=== PATIENT | male | born 1980 | race Caucasian/White ===

== ENCOUNTER 2018-01-13 23:35 | Emergency (ER) | payer OTHER ==
[2018-01-13 23:46] VITALS: BP 148/85; PULSE 104; RESP 18; TEMP 98.2
[2018-01-14 00:21] LABS: Appearance,Urine Cloudy (Clear); Bilirubin,Urine Negative (Negative); Blood,Urine Negative (Negative); Color,Urine Yellow; Glucose,Urine (UA) Negative (Negative); Hyaline Casts,Urine 18 /lpf (0-2); Ketones,Urine Negative (Negative); Leukocyte Esterase,Urine Negative (Negative); Mucus,Urine Many /hpf; Nitrite,Urine Negative (Negative); Protein,Urine 2+ (Negative); Specific Gravity,Urine 1.023 (1.001-1.035); WBC,Urine 9 /hpf (0-5)
--- NOTE | 2018-01-14 00:30 | ED ---
Male Urogenital HPI - General Chief complaint: Urogenital Stated complaint: male gu Time Seen by Provider: 01/13/18 23:47 Source: patient, RN notes reviewed Mode of arrival: ambulatory Limitations: no limitations - History of Present Illness Initial comments: This a 37-year-old male presents emergency Department chief complaint of swelling to his penis. Patient states that he notices regarding the shower today. Patient does admit to intercourse last night with his significant other. He denies any trauma. Denies any pain denies any difficulty urinating. Patient states that it's just swollen, purple in color. Patient states is at the base of his penile shaft denies any swelling to the head of the penis. - Related Data Home Medications Medication Instructions Recorded Confirmed [place] Carbonate [[place] 300 mg PO TID 04/14/14 01/13/18 Carbonate ER] Previous Rx's Medication Instructions Recorded [place] Carbon[place] [[place]] 300 mg PO TID #42 capsule 04/14/14 hydrOXYzine PAMOATE [Vistaril] 100 mg PO HS #28 capsule 04/14/14 Allergies Allergy/AdvReac Type Severity Reaction Status Date / Time Penicillins Allergy Unknown Verified 01/13/18 23:46 Review of Systems ROS Statement: Those systems with pertinent positive or pertinent negative responses have been documented in the HPI. ROS Other: All systems not noted in ROS Statement are negative. Past Medical History Past Medical History: No Reported History History of Any Multi-Drug Resistant Organisms: None Reported Past Surgical History: No Surgical Hx Reported Past Psychological History: Bipolar Smoking Status: Current every day smoker Past Alcohol Use History: Occasional Past Drug Use History: None Reported General Exam Limitations: no limitations General appearance: alert, in no apparent distress Head exam: Present: atraumatic, normocephalic, normal inspection Respiratory exam: Present: normal lung sounds bilaterally. Absent: respiratory distress, wheezes, rales, rhonchi, stridor Cardiovascular Exam: Present: regular rate, normal rhythm, normal heart sounds. Absent: systolic murmur, diastolic murmur, rubs, gallop, clicks GI/Abdominal exam: Present: soft, normal bowel sounds. Absent: distended, tenderness, guarding, rebound, rigid exam: Present: circumcision. Absent: normal inspection (There is a hematoma noted on anterior surface of the penis is not circumferential it is at the base of the penis does not extend past the mid shaft and there is no trauma to female shaft or the head of the penis. There is no scrotal pain scrotal tenderness or swelling), testicular tenderness, scrotal swelling Course Vital Signs 01/13/18 23:43 Temperature 98.2 F Pulse Rate 104 H Respiratory 18 Rate Blood Pressure 148/85 O2 Sat by Pulse 97 Oximetry Medical Decision Making - Medical Decision Making 37-year-old male presented for pain L swelling. Patient has a hematoma noted patient reports no trauma and there is no associated pain. Patient had a urinalysis no evidence of hematuria. Injury is not circumferential. There is no concern for pale fracture at this time is no trauma. Patient will be discharged advised to follow with urology and return for any worsening symptoms. - Lab Data Lab Results 01/13/18 Range/Units 23:59 Urine Color Yellow Urine Appearance Cloudy (Clear) Urine pH 6.0 (5.0-8.0) Ur Specific [place] 1.023 (1.001-1.035) Urine Protein 2+ H (Negative) Urine Glucose (UA) Negative (Negative) Urine Ketones Negative (Negative) Urine Blood Negative (Negative) Urine Nitrite Negative (Negative) Urine Bilirubin Negative (Negative) Urine Urobilinogen 6.0 (<2.0) mg/dL Ur Leukocyte Esterase Negative (Negative) Urine WBC 9 H (0-5) /hpf Hyaline Casts 18 H (0-2) /lpf Urine Mucus Many H (None) /hpf Disposition Clinical Impression: Nontraumatic hematoma of penis Disposition: HOME SELF-CARE Condition: Stable Instructions: Hematoma (ED) Additional Instructions: Please return to the Emergency Department if symptoms worsen or any other concerns. Is patient prescribed a controlled substance at d/c from ED?: No Referrals: None,Stated [Primary Care Provider] - 1-2 days
[2018-01-15 16:10] LABS: N. gonorrhoeae,PCR Negative (Neg,Equiv); Neisseria Source Urine
[2018-01-15 16:23] LABS: C. trachomatis,PCR Negative (Neg,Equiv); Chlamydia trachomatis Source Urine
== END 2018-01-14 00:33 | disposition home or self-care (01) ==
LOC: EC 23:35
DX: N48.89 Other specified disorders of penis (principal); F31.9 Bipolar disorder, unspecified; F17.200 Nicotine dependence, unspecified, uncomplicated; Z79.899 Other long term (current) drug therapy; Z88.0 Allergy status to penicillin
CPT/HCPCS: 81001; 87086; 87491; 87591; 99283

== ENCOUNTER 2018-03-02 23:45 | Observation (INO) | payer OTHER ==
[2018-03-03] MEDS ORDERED: HYDROcodone/APAP 5-325MG 1 EACH TAB PO STA ×2 (00:02→00:47)
--- NOTE | 2018-03-03 00:08 | ED ---
Fall HPI - General Source: patient, RN notes reviewed Mode of arrival: ambulatory Limitations: no limitations <Supa Estevez - Last Filed: 03/03/18 02:34> <Wes Siblye - Last Filed: 03/04/18 11:47> - General Chief Complaint: Fall Stated Complaint: Shoulder Injury Time Seen by Provider: 03/02/18 23:56 - History of Present Illness Initial Comments: This is a 37-year-old male presents emergency Department chief complaint fall, chest and shoulder injury. Patient states he fell off an 8 foot ladder directly onto a rock. He states he's been severe pain ever since the fall. Patient states he can't move the shoulder, take a deep breath or cough without severe pain. Patient denies any head injury no loss conscious. Denies neck or back pain. Patient is found to be febrile emergency department he denies feeling feverish at home, chills or night sweats. Patient states he did have some ingrown hairs on his chest and in which he popped and now noticed swelling on the top of his chest. (Supa Estevez) - Related Data Home Medications Medication Instructions Recorded Confirmed No Known Home Medications 03/03/18 03/03/18 Allergies Allergy/AdvReac Type Severity Reaction Status Date / Time Penicillins Allergy Unknown Verified 03/03/18 08:32 Review of Systems ROS Other: All systems not noted in ROS Statement are negative. <Supa Estevez - Last Filed: 03/03/18 02:34> ROS Other: All systems not noted in ROS Statement are negative. <Wes Sibley - Last Filed: 03/04/18 11:47> ROS Statement: Those systems with pertinent positive or pertinent negative responses have been documented in the HPI. Past Medical History Past Medical History: No Reported History History of Any Multi-Drug Resistant Organisms: None Reported Past Surgical History: No Surgical Hx Reported Past Psychological History: Bipolar Smoking Status: Current every day smoker Past Alcohol Use History: Occasional Past Drug Use History: None Reported <Supa Estevez - Last Filed: 03/03/18 02:34> General Exam Limitations: no limitations General appearance: alert, in no apparent distress Head exam: Present: atraumatic, normocephalic, normal inspection Eye exam: Present: normal appearance, PERRL, EOMI. Absent: scleral icterus, conjunctival injection, periorbital swelling ENT exam: Present: normal exam, normal oropharynx, mucous membranes moist Neck exam: Present: normal inspection. Absent: tenderness, meningismus, lymphadenopathy Respiratory exam: Present: normal lung sounds bilaterally, chest wall tenderness (Severe anterior chest wall pain at the superior aspect, there is some erythematous follicles on the chest). Absent: respiratory distress, wheezes, rales, rhonchi, stridor Cardiovascular Exam: Present: normal rhythm, tachycardia, normal heart sounds. Absent: systolic murmur, diastolic murmur, rubs, gallop, clicks GI/Abdominal exam: Present: soft, normal bowel sounds. Absent: distended, tenderness, guarding, rebound, rigid <Supa Estevez - Last Filed: 03/03/18 02:34> Vital Signs 03/02/18 03/03/18 03/03/18 23:47 01:51 02:19 Temperature 100.6 F H 99.3 F Pulse Rate 140 H 102 H 101 H Respiratory 24 19 17 Rate Blood Pressure 157/92 136/78 131/92 O2 Sat by Pulse 92 L 94 L 94 L Oximetry 03/03/18 02:56 Temperature 98.4 F Pulse Rate 102 H Respiratory 15 Rate Blood Pressure 138/85 O2 Sat by Pulse 93 L Oximetry Medical Decision Making - Lab Data Result diagrams: 03/03/18 00:15 03/03/18 00:15 <Supa Estevez - Last Filed: 03/03/18 02:34> - Lab Data Result diagrams: 03/03/18 00:15 03/03/18 00:15 <Wes Sibley - Last Filed: 03/04/18 11:47> - Medical Decision Making I saw this patient in conjunction with the physician warehouse administrative assistant. I performed independent history and physical exam. Agree with case management. (Wes Sibley) - Lab Data Lab Results 03/03/18 03/03/18 03/03/18 Range/Units 00:15 00:15 00:15 WBC 16.5 H (3.8-10.6) k/uL RBC 4.46 (4.30-5.90) m/uL Hgb 13.6 (13.0-17.5) gm/dL Hct 40.4 (39.0-53.0) % MCV 90.6 (80.0-100.0) fL MCH 30.5 (25.0-35.0) pg MCHC 33.7 (31.0-37.0) g/dL RDW 13.0 (11.5-15.5) % Plt Count 414 (150-450) k/uL Neutrophils % 79 % Lymphocytes % 11 % Monocytes % 6 % Eosinophils % 1 % Basophils % 0 % Neutrophils # 12.9 H (1.3-7.7) k/uL Lymphocytes # 1.7 (1.0-4.8) k/uL Monocytes # 1.0 (0-1.0) k/uL Eosinophils # 0.2 (0-0.7) k/uL Basophils # 0.1 (0-0.2) k/uL Sodium 134 L (137-145) mmol/L Potassium 4.5 (3.5-5.1) mmol/L Chloride 95 L (98-107) mmol/L Carbon Dioxide 25 (22-30) mmol/L Anion Gap 14 mmol/L BUN 14 (9-20) mg/dL Creatinine 0.70 (0.66-1.25) mg/dL Est GFR (CKD-EPI)AfAm >90 (>60 ml/min/1.73 sqM) Est GFR (CKD-EPI)NonAf >90 (>60 ml/min/1.73 sqM) Glucose 142 H (74-99) mg/dL Plasma Lactic Acid Anthony (0.7-2.0) mmol/L Calcium 9.0 (8.4-10.2) mg/dL Total Bilirubin 0.6 (0.2-1.3) mg/dL AST 49 (17-59) U/L ALT 57 (21-72) U/L Alkaline Phosphatase 108 (38-126) U/L Total Creatine Kinase 37 L (55-170) U/L CK-MB (CK-2) <0.2 (0.0-2.4) ng/mL CK-MB (CK-2) Rel Index Troponin I <0.012 (0.000-0.034) ng/mL Total Protein 7.7 (6.3-8.2) g/dL Albumin 3.7 (3.5-5.0) g/dL 03/03/18 Range/Units 00:15 WBC (3.8-10.6) k/uL RBC (4.30-5.90) m/uL Hgb (13.0-17.5) gm/dL Hct (39.0-53.0) % MCV (80.0-100.0) fL MCH (25.0-35.0) pg MCHC (31.0-37.0) g/dL RDW (11.5-15.5) % Plt Count (150-450) k/uL Neutrophils % % Lymphocytes % % Monocytes % % Eosinophils % % Basophils % % Neutrophils # (1.3-7.7) k/uL Lymphocytes # (1.0-4.8) k/uL Monocytes # (0-1.0) k/uL Eosinophils # (0-0.7) k/uL Basophils # (0-0.2) k/uL Sodium (137-145) mmol/L Potassium (3.5-5.1) mmol/L Chloride (98-107) mmol/L Carbon Dioxide (22-30) mmol/L Anion Gap mmol/L BUN (9-20) mg/dL Creatinine (0.66-1.25) mg/dL Est GFR (CKD-EPI)AfAm (>60 ml/min/1.73 sqM) Est GFR (CKD-EPI)NonAf (>60 ml/min/1.73 sqM) Glucose (74-99) mg/dL Plasma Lactic Acid [place] 1.3 (0.7-2.0) mmol/L Calcium (8.4-10.2) mg/dL Total Bilirubin (0.2-1.3) mg/dL AST (17-59) U/L ALT (21-72) U/L Alkaline Phosphatase (38-126) U/L Total Creatine Kinase (55-170) U/L CK-MB (CK-2) (0.0-2.4) ng/mL CK-MB (CK-2) Rel Index Troponin I (0.000-0.034) ng/mL Total Protein (6.3-8.2) g/dL Albumin (3.5-5.0) g/dL Disposition <Supa Estevez - Last Filed: 03/03/18 02:34> <Wes Sibley - Last Filed: 03/04/18 11:47> Clinical Impression: Fall, Chest wall abscess, Chest wall contusion Disposition: ADMITTED IP TO THIS HOSP Condition: Stable Addendum entered and electronically signed by Supa Estevez PA-C 03/03/18 02: 36: EKG performed at 1:38 sinus tachycardia with a rate of 108 DC 146 QRS 98 QT/QTC 322/431
[2018-03-03 00:27] LABS: Basophils # (A) 0.1 k/uL (0-0.2); Basophils % (A) 0 %; Eosinophils # (A) 0.2 k/uL (0-0.7); Eosinophils % (A) 1 %; HCT 40.4 % (39.0-53.0); HGB 13.6 gm/dL (13.0-17.5); Lymphocytes # (A) 1.7 k/uL (1.0-4.8); Lymphocytes % (A) 11 %; MCH 30.5 pg (25.0-35.0); MCHC 33.7 g/dL (31.0-37.0); MCV 90.6 fL (80.0-100.0); Mean Platelet Volume 6.7; Monocytes % (A) 6 %; Neutrophils # (A) 12.9 k/uL (1.3-7.7); Neutrophils % (A) 79 %; Platelet Count 414 k/uL (150-450); RBC 4.46 m/uL (4.30-5.90); WBC 16.5 k/uL (3.8-10.6)
[2018-03-03 00:36] LABS: ALT 57 U/L (21-72); AST 49 U/L (17-59); Albumin 3.7 g/dL (3.5-5.0); Alkaline Phosphatase 108 U/L (38-126); Anion Gap 14 mmol/L; Blood Urea Nitrogen 14 mg/dL (9-20); Carbon Dioxide 25 mmol/L (22-30); Chloride 95 mmol/L (98-107); Glucose 142 mg/dL (74-99); Potassium 4.5 mmol/L (3.5-5.1); Sodium 134 mmol/L (137-145); Total Bilirubin 0.6 mg/dL (0.2-1.3); Total Protein 7.7 g/dL (6.3-8.2)
--- NOTE | 2018-03-03 00:41 | XR ---
EXAMINATION TYPE: XR chest 2V DATE OF EXAM: 03/03/2018 COMPARISON: 08/25/2013 HISTORY: Shoulder pain chest pain TECHNIQUE: Frontal and lateral views of the chest are obtained. FINDINGS: Heart and mediastinum are normal. Lungs are clear. Diaphragm is normal. Bony thorax is int act. IMPRESSION: Normal chest. No change.
[2018-03-03] MEDS ORDERED: RX INFO: IV CONTRAST WAS GIVEN 1 EACH MISC MISCELLANE PRN (00:42)
[2018-03-03 00:46] LABS: Creatine Kinase 37 U/L (55-170)
[2018-03-03 00:59] LABS: Creatine Kinase MB <0.2 ng/mL (0.0-2.4); Troponin I <0.012 ng/mL (0.000-0.034)
--- NOTE | 2018-03-03 01:38 | CT ---
EXAMINATION TYPE: CT chest w con DATE OF EXAM: 03/03/2018 COMPARISON: None HISTORY: pain CT DLP: 527.60 mGycm Automated exposure control for dose reduction was used. CONTRAST: CT scan of the chest is performed with IV Contrast, patient injected with 100 mL of Isovue 300. FINDINGS: The lungs are clear of consolidation. There is minimal interstitial density at the left lung base. Th ere is no pleural effusion. There is no evidence of a pneumothorax. Heart size is normal. There is no pericardial effusion. There is no mediastinal adenopathy. There is a 4 x 3 cm area of low attenuatio n anterior to the manubrium consistent with a subcutaneous fluid collection. This could be a hematoma or abscess. I see no focal bone destruction. There is no evidence of a fracture of the bony thorax. IMPRESSION: Anterior subcutaneous fluid collection as above. No evidence of osteomyelitis. Mild subc utaneous edema over the anterior upper chest. Minimal interstitial infiltrate in the left lower lobe. No evidence of left shoulder fracture.
[2018-03-03] MEDS ORDERED: cefTRIAXone IN SWFI 1,000 MG/10 ML SYRINGE IVP STA (02:00)
[2018-03-03] MEDS ORDERED: VANCOMYCIN IV PER PHARMACY 1 EACH MISC MISCELLANE PRN (02:00)
[2018-03-03] MEDS ORDERED: MORPHINE SULFATE 4 MG/ML SYRINGE IV PRN (02:34)
[2018-03-03] MEDS ORDERED: ACETAMINOPHEN TAB 325 MG TAB PO PRN (02:34)
[2018-03-03] MEDS ORDERED: ONDANSETRON 4 MG/2 ML VIAL IVP PRN (02:34)
[2018-03-03] MEDS ORDERED: VANCOMYCIN 1,750 MG in SODIUM CHLORIDE 0.9% 500 ML IVPB ONE (03:15)
[2018-03-03 03:19] VITALS: RESP 16
[2018-03-03 03:30] VITALS: BMI 26.9
[2018-03-03] MEDS ORDERED: VANCOMYCIN 1,750 MG in SODIUM CHLORIDE 0.9% 250 ML IVPB ONE (03:31)
[2018-03-03] MEDS: HYDROcodone/APAP 5-325MG 1 EACH TAB PO PRN ×3 (05:17→16:27)
--- NOTE | 2018-03-03 08:12 | P.GSHP ---
History of Present Illness H&P Date: 03/03/18 Chief Complaint: Chest wall pain Patient comes in the ER last night complaining of pain in the upper sternal region. This is been gradually increasing in severity over the last several days. It is at the point now where he is unable to move his left shoulder joint without significant pain. His significant other had to dress him. He was feeling well until about 2 weeks ago. Around that time the patient developed a itching rash involving the lower anterior chest wall. There were multiple small pustules that he identified and drained himself. He was not treated with antibiotics for this. He still has scarring in that area with some small open wounds. He does have some small superficial wounds involving other areas of the torso as well. 6 days ago the patient fell off a ladder and landed on a rough ground with rock. His left upper chest was first hit the ground during that episode. The patient presents to the ER with fevers. His white blood cell count is elevated. CAT scan of the chest showed a fluid collection anterior to the manubrium with some inflammatory changes. No fracture or bony involvement was described. - Review of Systems Comment: The patient denies any acute changes in vision or hearing, no dysphagia or odynophagia, no chest pain or shortness of breath, no dysuria or hematuria, no headache, no runny nose, no rectal bleeding or melena, no unexplained weight loss Past Medical History Past Medical History: No Reported History History of Any Multi-Drug Resistant Organisms: None Reported Past Surgical History: No Surgical Hx Reported Past Anesthesia/Blood Transfusion Reactions: No Reported Reaction Past Psychological History: Bipolar Smoking Status: Current every day smoker Past Alcohol Use History: None Reported, Occasional Past Drug Use History: None Reported Medications and Allergies Home Medications Medication Instructions Recorded Confirmed Type [place] Carbonate [[place] 300 mg PO TID 04/14/14 01/13/18 History Carbonate ER] [place] Carbonate [[place]] 300 mg PO TID #42 capsule 04/14/14 01/13/18 Rx hydrOXYzine PAMOATE [Vistaril] 100 mg PO HS #28 capsule 04/14/14 01/13/18 Rx Allergies Allergy/AdvReac Type Severity Reaction Status Date / Time Penicillins Allergy Unknown Verified 03/02/18 23:50 Surgical - Exam Vital Signs Temp Pulse Resp BP Pulse Ox 100.6 F H 140 H 24 157/92 92 L 03/02/18 23:47 03/02/18 23:47 03/02/18 23:47 03/02/18 23:47 03/02/18 23:47 Physical exam: General: Well-developed, well-nourished HEENT: Normocephalic, sclerae nonicteric Chest: Multiple small less than 5 mm open wounds involving the lower anterior chest wall without tenderness, swelling and erythema with significant tenderness involving the upper midsternal region extending to the left, pain involving the medial left clavicle and sternocleidomastoid muscle on the left, significant pain with any active or passive motion at the left shoulder joint, no fluctuance palpable Abdomen: Nontender, nondistended Extremities: No edema Neuro: Alert and oriented Results - Labs 03/03/18 00:15 03/03/18 00:15 Abnormal Lab Results - Last 24 Hours (Table) 03/03/18 03/03/18 03/03/18 Range/Units 00:15 00:15 00:15 WBC 16.5 H (3.8-10.6) k/uL Neutrophils # 12.9 H (1.3-7.7) k/uL Sodium 134 L (137-145) mmol/L Chloride 95 L (98-107) mmol/L Glucose 142 H (74-99) mg/dL Total Creatine Kinase 37 L (55-170) U/L Diabetes panel 03/03/18 Range/Units 00:15 Sodium 134 L (137-145) mmol/L Potassium 4.5 (3.5-5.1) mmol/L Ch[place] 95 L (98-107) mmol/L Carbon Dioxide 25 (22-30) mmol/L BUN 14 (9-20) mg/dL Creatinine 0.70 (0.66-1.25) mg/dL Glucose 142 H (74-99) mg/dL Calcium 9.0 (8.4-10.2) mg/dL AST 49 (17-59) U/L ALT 57 (21-72) U/L Alkaline Phosphatase 108 (38-126) U/L Total Protein 7.7 (6.3-8.2) g/dL Albumin 3.7 (3.5-5.0) g/dL Calcium panel 03/03/18 Range/Units 00:15 Calcium 9.0 (8.4-10.2) mg/dL Albumin 3.7 (3.5-5.0) g/dL Pituitary panel 03/03/18 Range/Units 00:15 Sodium 134 L (137-145) mmol/L Potassium 4.5 (3.5-5.1) mmol/L Chlor[place] 95 L (98-107) mmol/L Carbon Dioxide 25 (22-30) mmol/L BUN 14 (9-20) mg/dL Creatinine 0.70 (0.66-1.25) mg/dL Glucose 142 H (74-99) mg/dL Calcium 9.0 (8.4-10.2) mg/dL Adrenal panel 03/03/18 Range/Units 00:15 Sodium 134 L (137-145) mmol/L Potassium 4.5 (3.5-5.1) mmol/L Chlor[place] 95 L (98-107) mmol/L Carbon Dioxide 25 (22-30) mmol/L BUN 14 (9-20) mg/dL Creatinine 0.70 (0.66-1.25) mg/dL Glucose 142 H (74-99) mg/dL Calcium 9.0 (8.4-10.2) mg/dL Total Bilirubin 0.6 (0.2-1.3) mg/dL AST 49 (17-59) U/L ALT 57 (21-72) U/L Alkaline Phosphatase 108 (38-126) U/L Total Protein 7.7 (6.3-8.2) g/dL Albumin 3.7 (3.5-5.0) g/dL Assessment and Plan (1) Chest wall abscess Narrative/Plan: Patient with CAT scan findings and clinical exam findings suggesting chest wall abscess at the level of the manubrium. Clinically I'm concerned about the possibility of infection involving the sternoclavicular joint. We'll consult thoracic surgery to evaluate this patient. Will require surgical drainage and possible debridement. This may require transfer for definitive treatment. Continue antibiotics. We'll also consult infectious disease. Current Visit: Yes Status: Acute Code(s): L02.213 - CUTANEOUS ABSCESS OF CHEST WALL SNOMED Code(s): 02177786
[2018-03-03] MEDS ORDERED: VANCOMYCIN 1,500 MG in SODIUM CHLORIDE 0.9% 250 ML IVPB SCH (10:00)
--- NOTE | 2018-03-03 10:58 | P.GSCN ---
<Concepcion Torres Estefania - Last Filed: 03/03/18 10:38> History of Present Illness Consult date: 03/03/18 Reason for Consult: Chest wall abscess, surgical recommendations. Requesting physician: Tam Bates History of present illness: This is a 37-year-old gentleman who does not follow with a primary care physician on a regular basis. His only previous medical history is bipolar disorder as well as current everyday tobacco dependence and occasional marijuana use. A few days ago he fell off a ladder and landed on rough, cely ground, he did hit his chest. He denied hitting his head or losing consciousness. He chose not to come to the emergency room at that time stating that his pain was not too bad, however over the next few days his pain continued to grow. He initially thought it was just muscle strain but presented to the emergency room last night because the pain has gotten so bad he was unable to move his left arm. In the emergency room a chest x-ray was completed demonstrating no fractures or significant cardiopulmonary process. A chest CT was completed which showed evidence of a fluid collection in front of the manubrium, questioning whether it is a hematoma versus abscess, and no fractures were seen. The patient does have an elevated white blood cell count of 16.5, and has been mildly febrile with a max temp of 100.6F. Of note, a couple of weeks ago he did have an itchy rash with what he described to be ingrown hairs on his chest, he did "pop" multiple small pustules, and does still continue to have open sores which do not look to be draining but are very red in nature. He had not been treated with any antibiotics for this. The patient does state his only other symptom is increased pain with deep inspiration, pain is mildly controlled with currently ordered medication, and he denies any other symptoms. He was admitted and placed on IV vancomycin. Dr. Tapia from cardiothoracic surgery was consulted for surgical recommendations regarding chest wall abscess. Review of Systems Review of systems was completed and was negative except as noted in the HPI. - Constitutional Reports as per HPI, Reports sweats - Cardiovascular Reports as per HPI, Reports chest pain - Musculoskeletal Musculoskeleta Comment(s): Unable to move left arm secondary to pain Reports as per HPI - Integumentary Reports as per HPI, Reports wounds Past Medical History Past Medical History: No Reported History History of Any Multi-Drug Resistant Organisms: None Reported Past Surgical History: No Surgical Hx Reported Past Anesthesia/Blood Transfusion Reactions: No Reported Reaction Past Psychological History: Bipolar Smoking Status: Current every day smoker Past Alcohol Use History: None Reported, Occasional Past Drug Use History: Marijuana Medications and Allergies Home Medications Medication Instructions Recorded Confirmed Type No Known Home Medications 03/03/18 03/03/18 History Allergies Allergy/AdvReac Type Severity Reaction Status Date / Time Penicillins Allergy Unknown Verified 03/03/18 08:32 Surgical - Exam Vital Signs Temp Pulse Resp BP Pulse Ox 100.6 F H 140 H 24 157/92 92 L 03/02/18 23:47 03/02/18 23:47 03/02/18 23:47 03/02/18 23:47 03/02/18 23:47 - General No acute distress well developed, well nourished, moderate pain - Eyes PERRL, normal ocular movement - ENT no hearing loss, poor correction - Neck no masses, no bruits, trachea midline - Respiratory Lungs sounds diminished bilaterally. Respirations even, nonlabored. Currently on room air with oxygen saturation 94%. Able to give weak cough. - Cardiovascular S1, S2 present. Regular rate and rhythm. Sinus tach on EKG. Palpable peripheral pulses bilaterally. No edema present. No calf pain or tenderness noted. - Abdomen Abdomen: soft, non tender, bowel sounds - Genitourinary Deferred - Rectum Deferred - Integumentary Multiple areas of small wounds on the anterior superior chest wall which are very red but not draining currently. Skin is diaphoretic. Multiple tattoos present. - Neurologic normal coordination, normal sensation - Psychiatric oriented to time, oriented to person, oriented to place, speech is normal, memory intact Results - Labs 03/03/18 00:15 03/03/18 00:15 Abnormal Lab Results - Last 24 Hours (Table) 03/03/18 03/03/18 03/03/18 Range/Units 00:15 00:15 00:15 WBC 16.5 H (3.8-10.6) k/uL Neutrophils # 12.9 H (1.3-7.7) k/uL Sodium 134 L (137-145) mmol/L Chloride 95 L (98-107) mmol/L Glucose 142 H (74-99) mg/dL Total Creatine Kinase 37 L (55-170) U/L Diabetes panel 03/03/18 Range/Units 00:15 Sodium 134 L (137-145) mmol/L Potassium 4.5 (3.5-5.1) mmol/L Chloride 95 L (98-107) mmol/L Carbon Dioxide 25 (22-30) mmol/L BUN 14 (9-20) mg/dL Creatinine 0.70 (0.66-1.25) mg/dL Glucose 142 H (74-99) mg/dL Calcium 9.0 (8.4-10.2) mg/dL AST 49 (17-59) U/L ALT 57 (21-72) U/L Alkaline Phosphatase 108 (38-126) U/L Total Protein 7.7 (6.3-8.2) g/dL Albumin 3.7 (3.5-5.0) g/dL Calcium panel 03/03/18 Range/Units 00:15 Calcium 9.0 (8.4-10.2) mg/dL Albumin 3.7 (3.5-5.0) g/dL Pituitary panel 03/03/18 Range/Units 00:15 Sodium 134 L (137-145) mmol/L Potassium 4.5 (3.5-5.1) mmol/L Chloride 95 L (98-107) mmol/L Carbon Dioxide 25 (22-30) mmol/L BUN 14 (9-20) mg/dL Creatinine 0.70 (0.66-1.25) mg/dL Glucose 142 H (74-99) mg/dL Calcium 9.0 (8.4-10.2) mg/dL Adrenal panel 03/03/18 Range/Units 00:15 Sodium 134 L (137-145) mmol/L Potassium 4.5 (3.5-5.1) mmol/L Chloride 95 L (98-107) mmol/L Carbon Dioxide 25 (22-30) mmol/L BUN 14 (9-20) mg/dL Creatinine 0.70 (0.66-1.25) mg/dL Glucose 142 H (74-99) mg/dL Calcium 9.0 (8.4-10.2) mg/dL Total Bilirubin 0.6 (0.2-1.3) mg/dL AST 49 (17-59) U/L ALT 57 (21-72) U/L Alkaline Phosphatase 108 (38-126) U/L Total Protein 7.7 (6.3-8.2) g/dL Albumin 3.7 (3.5-5.0) g/dL - Imaging Chest x-ray: report reviewed, image reviewed CT scan - chest: report reviewed, image reviewed EKG: image reviewed Assessment and Plan (1) Bipolar 1 disorder Status: Chronic Code(s): F31.9 - BIPOLAR DISORDER, UNSPECIFIED SNOMED Code(s ): 275079082 (2) Tobacco dependence Status: Chronic Code(s): F17.200 - NICOTINE DEPENDENCE, UNSPECIFIED, UNCOMPLICATED SNOMED Code(s): 04638363 (3) Marijuana use Status: Chronic Code(s): F12.90 - CANNABIS USE, UNSPECIFIED, UNCOMPLICATED SNOMED Code(s): 312300737 (4) Chest wall abscess Status: Acute Code(s): L02.213 - CUTANEOUS ABSCESS OF CHEST WALL SNOMED Code (s): 19445217 (5) Fall Status: Acute Code(s): W19.XXXA - UNSPECIFIED FALL, INITIAL ENCOUNTER SNOMED Code(s): 5331377 Plan: The patient was seen and examined at the bedside. Chart/diagnostics were reviewed. Case was discussed with Dr. Tapia who will be in to see the patient this afternoon. We will order incentive spirometry and encourage use 10 times every hour. Pain medication with current regimen. Continue antibiotics. We' ll make decision today regarding treatment plan and will discuss with the patient and with Dr. Bates. More recommendations to follow. Thank you Dr. Bates for this consult. We look forward to working with you in the care of your patient. Time with Patient: Greater than 30 <Patrice Tapia - Last Filed: 03/07/18 09:40> Surgical - Exam Vital Signs Temp Pulse Resp BP Pulse Ox 100.6 F H 140 H 24 157/92 92 L 03/02/18 23:47 03/02/18 23:47 03/02/18 23:47 03/02/18 23:47 03/02/18 23:47 Results - Labs 03/03/18 00:15 03/03/18 00:15 Microbiology - Last 24 Hours (Table) 03/03/18 15:26 Blood Culture - Preliminary Blood No Growth after 72 hours Assessment and Plan Plan: The patient was seen and examined. I agree with the above assessment and plan. The patient is a 37 y/o male who fell onto his chest from a ladder. He has some erythema and tenderness near the superior portion of his sternum. CT scan of the chest was personally reviewed. There is no evidence of fracture. There is a small fluid collection near the manubrium but it appears to be anterior to the bone. The bone itself does not appear to be involved. He may benefit from an MRI. At this point, I would continue with antibiotics. The patient may eventually require surgical drainage/debridement. I will speak with the Dr. Bates regarding my findings.
[2018-03-03] MEDS ORDERED: NICOTINE 14MG/24HR PATCH TRANSDERM SCH (11:15)
[2018-03-03 15:04] VITALS: BP 119/74; PULSE 69; TEMP 98
[2018-03-03] MEDS ORDERED: ceFAZolin IN SWFI 2 GM/20 ML SYRINGE IVP STA (17:58)
--- NOTE | 2018-03-03 20:21 | P.CONS ---
History of Present Illness - Reason for Consult Consult date: 03/03/18 - Chief Complaint fall from ladder - History of Present Illness Pleasant 37-year-old male who apparently does not have significant underlying medical troubles except for a skin rash to his anterior chest wall relates that he was doing relatively well until falling off a ladder. He relates that he was approximately 8 feet in the air when he fell from the ladder. 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 After falling he was having increasing amounts of pain to his anterior chest wall and because of the increasing amount of pain he did present to the emergency center. There is evidence of no stiff infractured a significant abnormal collection of fluid around the manubrium going to the left shoulder. The patient was admitted and seen by general surgery. There is also a cardiothoracic consult requested. The patient is upright able to maneuver in his room but complaining of septic and pain in the area. He is denying severe shortness of breath, he is not having cough or sputum production. There is been no hemoptysis or other change of his pulmonary status. He does relate to some discomfort with a deep breath or cough to the left upper chest area. He does relate that his left shoulder was quite painful a few days ago and this is improved but still not back to baseline. He denies any new neurological symptoms and has no history of seizures or other difficulties. Review of Systems 37-year-old male without significant underlying medical troubles HEENT:Denies headache or acute visual change. Denies sinus or mouth discomforts. Denies neck stiffness or pain. Denies significant oral cavity pain. Denies difficulty on swallowing. Lungs: Denies significant shortness of breath, cough, sputum production, or hemoptysis. Cardiovascular: Denies significant shortness of breath, chest pain, chest wall pain, orthopnea, dyspnea on exertion, syncope Gastrointestinal:Denies nausea, vomiting, diarrhea, constipation, hematemesis, melena, hematochezia. No no significant change of bowel habit noticed. Musculoskeletal: Complains of pain to the left shoulder area and left anterior chest Skin: Has complaints of a blistering type rash anterior chest that had drainage of purulent type material in a cluster over the mid sternal area occurring many days before his trauma. Neuro: Denies headache or visual change. Denies any new onset weakness or difficulty with ambulation. Denies falls or seizures. Psychiatric:Denies anxiety or depression. Endocrine: Denies significant fatigue, denies significant weight loss or weight gain. Past Medical History Past Medical History: No Reported History History of Any Multi-Drug Resistant Organisms: None Reported Past Surgical History: No Surgical Hx Reported Past Anesthesia/Blood Transfusion Reactions: No Reported Reaction Past Psychological History: Bipolar Additional Psychological History / Comment(s): Lives with his girlfriend. Works in construction. Does not have experience. No international travel. No animals in the home. Is a tobacco smoker but denies significant alcohol or recreational drug use. Does not relate any ongoing medications in the home setting. Smoking Status: Current every day smoker Past Alcohol Use History: None Reported, Occasional Past Drug Use History: Marijuana Medications and Allergies Home Medications and Allergies Comment(s): Vancomycin per pharmacy dosing and a stat dose of Ancef was requested prior to his discharge Home Medications Medication Instructions Recorded Confirmed Type No Known Home Medications 03/03/18 03/03/18 History Allergies Allergy/AdvReac Type Severity Reaction Status Date / Time Penicillins Allergy Unknown Verified 03/03/18 08:32 Physical Exam Vitals: Vital Signs Temp Pulse Pulse Resp BP BP Pulse Ox 03/03/18 15:00 98 F 69 16 119/74 94 L 03/03/18 07:50 99.7 F H 89 16 124/79 94 L 03/03/18 03:15 97.3 F L 16 133/89 97 03/03/18 02:56 98.4 F 102 H 15 138/85 93 L 03/03/18 02:19 101 H 17 131/92 94 L 03/03/18 01:51 99.3 F 102 H 19 136/78 94 L 03/02/18 23:47 100.6 F H 140 H 24 157/92 92 L Intake and Output 03/03/18 03/03/18 03/03/18 06:59 14:59 22:59 Other: Voiding Method Toilet # Voids 1 2 # Bowel Movements 1 Weight 95.254 kg 37-year-old male he does have somewhat of a thin build but does have some central abdominal fat distribution HEENT: Anicteric conjunctiva are pink and moist nasal mucosa grossly intact without significant lesions, there is no thrush. Neck: The neck is supple without significant lymphadenopathy or thyromegaly. Lungs: There is symmetrical bilateral air entry without significant crackles or expiratory wheezes are scattered no bronchial sounds no dullness or egophony Heart: Regular rate and rhythm with an audible S1-S2, no S3 no S4. There is no significant murmur click or rub, PMI was nondisplaced. Abdomen: Positive bowel sounds soft and nontender without palpable masses or organomegaly. There was no guarding or rebound. Extremities: The upper extremities have excellent pulses they are symmetric, no significant petechiae or telangiectasia. No splinter hemorrhages were noted. The lower extremities are free from significant edema. The peripheral pulses were 2+ and symmetric. Neuro: Awake alert oriented to person place and time. There are no acute new gross focal sensory motor deficits. The upper aspect of the chest if the manubrium to the left clavicle shows evidence of some swelling that is somewhat tender to touch. The swelling does extend into the left side of the neck into the anterior strap muscles that are full and mildly tender. There is nothing that is fluctuant but the area is quite full. It is tender to manipulation. There is mild erythema. He does have range of motion to his left shoulder is mainly restricted to some discomfort in attempts to perform adduction. No open areas in the chest wall are seen at the site of his prior extensive rash. Results CBC & Chem 7: 03/03/18 00:15 03/03/18 00:15 Labs: Abnormal Lab Results - Last 24 Hours (Table) 03/03/18 03/03/18 03/03/18 Range/Units 00:15 00:15 00:15 WBC 16.5 H (3.8-10.6) k/uL Neutrophils # 12.9 H (1.3-7.7) k/uL Sodium 134 L (137-145) mmol/L Chloride 95 L (98-107) mmol/L Glucose 142 H (74-99) mg/dL Total Creatine Kinase 37 L (55-170) U/L Microbiology - Last 24 Hours (Table) 03/03/18 00:15 Blood Culture Gram Stain - Preliminary Blood 03/03/18 00:15 Blood Culture - Final Blood Laboratory Results WBC 16.5 k/uL (3.8-10.6) H 03/03/18 00:15 RBC 4.46 m/uL (4.30-5.90) 03/03/18 00:15 Hgb 13.6 gm/dL (13.0-17.5) 03/03/18 00:15 Hct 40.4 % (39.0-53.0) 03/03/18 00:15 MCV 90.6 fL (80.0-100.0) 03/03/18 00:15 MCH 30.5 pg (25.0-35.0) 03/03/18 00:15 MCHC 33.7 g/dL (31.0-37.0) 03/03/18 00:15 RDW 13.0 % (11.5-15.5) 03/03/18 00:15 Plt Count 414 k/uL (150-450) 03/03/18 00:15 Neutrophils % 79 % 03/03/18 00:15 Lymphocytes % 11 % 03/03/18 00:15 Monocytes % 6 % 03/03/18 00:15 Eosinophils % 1 % 03/03/18 00:15 Basophils % 0 % 03/03/18 00:15 Neutrophils # 12.9 k/uL (1.3-7.7) H 03/03/18 00:15 Lymphocytes # 1.7 k/uL (1.0-4.8) 03/03/18 00:15 Monocytes # 1.0 k/uL (0-1.0) 03/03/18 00:15 Eosinophils # 0.2 k/uL (0-0.7) 03/03/18 00:15 Basophils # 0.1 k/uL (0-0.2) 03/03/18 00:15 Sodium 134 mmol/L (137-145) L 03/03/18 00:15 Potassium 4.5 mmol/L (3.5-5.1) 03/03/18 00:15 Chloride 95 mmol/L (98-107) L 03/03/18 00:15 Carbon Dioxide 25 mmol/L (22-30) 03/03/18 00:15 Anion Gap 14 mmol/L 03/03/18 00:15 BUN 14 mg/dL (9-20) 03/03/18 00:15 Creatinine 0.70 mg/dL (0.66-1.25) 03/03/18 00:15 Est GFR (CKD-EPI)AfAm >90 (>60 ml/min/1.73 sqM) 03/03/18 00:15 Est GFR (CKD-EPI)NonAf >90 (>60 ml/min/1.73 sqM) 03/03/18 00:15 Glucose 142 mg/dL (74-99) H 03/03/18 00:15 Plasma Lactic Acid Anthony 1.3 mmol/L (0.7-2.0) 03/03/18 00:15 Calcium 9.0 mg/dL (8.4-10.2) 03/03/18 00:15 Total Bilirubin 0.6 mg/dL (0.2-1.3) 03/03/18 00:15 AST 49 U/L (17-59) 03/03/18 00:15 ALT 57 U/L (21-72) 03/03/18 00:15 Alkaline Phosphatase 108 U/L (38-126) 03/03/18 00:15 Total Creatine Kinase 37 U/L (55-170) L 03/03/18 00:15 CK-MB (CK-2) <0.2 ng/mL (0.0-2.4) 03/03/18 00:15 CK-MB (CK-2) Rel Index 03/03/18 00:15 Troponin I <0.012 ng/mL (0.000-0.034) 03/03/18 00:15 Total Protein 7.7 g/dL (6.3-8.2) 03/03/18 00:15 Albumin 3.7 g/dL (3.5-5.0) 03/03/18 00:15 Microbiology 03/03/18 00:15 Blood Blood Culture Gram Stain - Preliminary 03/03/18 00:15 Blood Blood Culture - Final Assessment and Plan (1) Chest wall abscess Narrative/Plan: 37-year-old male who suffered a fall from a ladder 6 days ago presents to Hospital feeling considerably worse. He is developed some low- grade fevers and chills as well as increasing pain to the upper aspect of the chest wall at the sternum to the left shoulder. As noted has been seen by surgery and a computed tomography scan was performed. Evidence of a fluid collection around the manubrium is noted without significant fracture. Local cardiothoracic surgery was consulted and deferred treatment at this time. With evidence of possible blood cultures and concerns to need for surgical intervention the patient is transferred to the tertiary care center for the thoracic surgical evaluation and trauma evaluation. The patient is instructed if the time of discharge from the tertiary center he needs outpatient intravenous antibiotic therapy which appears to be likely if he has a staph or MRSA infection be happy to follow him appear in the [place] area. He does have a leukocytosis record related to his current sepsis and bacteremia. Fortunately he does not have renal failure. Follow blood cultures have been requested. Of note there is one blood sugar 142 the patient should be monitored for any further elevated glucose which could be contributing to the underlying infection. Status: Acute Code(s): L02.213 - CUTANEOUS ABSCESS OF CHEST WALL SNOMED Code (s): 72253897 (2) Gram-positive cocci bacteremia Status: Acute Code(s): R78.81 - BACTEREMIA SNOMED Code(s): 031044316204 (3) Leukocytosis Status: Acute Code(s): D72.829 - ELEVATED WHITE BLOOD CELL COUNT, UNSPECIFIED SNOMED Code(s): 895771246
[2018-03-04] MEDS ORDERED: VANCOMYCIN TROUGH DUE 1 EACH MISC MISCELLANE ONE (09:00)
== END 2018-03-03 20:08 | disposition other institution (70) ==
LOC: EC 23:45 → 3SUR 03-03 02:32
PROVIDERS: ADMIT Surgery; ATTEND Surgery
DX: L02.213 Cutaneous abscess of chest wall (principal); M25.512 Pain in left shoulder; R07.89 Other chest pain; F31.9 Bipolar disorder, unspecified; R73.9 Hyperglycemia, unspecified; R78.81 Bacteremia; B96.89 Other specified bacterial agents as the cause of diseases classified elsewhere; F12.90 Cannabis use, unspecified, uncomplicated; F17.200 Nicotine dependence, unspecified, uncomplicated; Z79.899 Other long term (current) drug therapy; Z88.0 Allergy status to penicillin; W11.XXXA Fall on and from ladder, initial encounter
CPT/HCPCS: 99285 ×2; 96375 ×3; 96365; 96366; 36415; 93005; 80053; 82550; 82553; 83605; 84484; 85025; 87040; 87077; 87186; 71046; 71260; G0378; S4990; J3370; J0696; J0690; Q9967

== ENCOUNTER → 2018-04-11 | Outpatient (CLI) | payer OTHER ==
[2018-04-11 16:02] LABS: Basophils % (A) 1 %; Eosinophils # (A) 0.4 k/uL (0-0.7); Eosinophils % (A) 6 %; HCT 39.1 % (39.0-53.0); Lymphocytes # (A) 1.4 k/uL (1.0-4.8); Lymphocytes % (A) 21 %; MCH 29.3 pg (25.0-35.0); MCHC 33.3 g/dL (31.0-37.0); Mean Platelet Volume 6.6; Monocytes # (A) 0.5 k/uL (0-1.0); Monocytes % (A) 8 %; Neutrophils # (A) 4.1 k/uL (1.3-7.7); Neutrophils % (A) 63 %; Platelet Count 240 k/uL (150-450); Poikilocytosis Slight; RBC 4.44 m/uL (4.30-5.90); RDW 14.8 % (11.5-15.5); WBC 6.4 k/uL (3.8-10.6)
[2018-04-11 16:08] LABS: Blood Urea Nitrogen 13 mg/dL (9-20)
[2018-04-11 18:43] LABS: Erythrocyte Sedimentation Rate 48 mm/hr (0-15)
== END | disposition home or self-care (01) ==
LOC: LABWHC1 15:19
PROVIDERS: ATTEND Plastic Surgery
DX: L02.213 Cutaneous abscess of chest wall (principal); B95.62 Methicillin resistant Staphylococcus aureus infection as the cause of diseases classified elsewhere
CPT/HCPCS: 36415; 80202; 82565; 84520; 85025; 85652

== ENCOUNTER 2018-04-17 03:45 | Emergency (ER) | payer OTHER ==
[2018-04-17 03:54] VITALS: BP 133/86; PULSE 104; RESP 17; TEMP 97.7
--- NOTE | 2018-04-17 04:17 | ED ---
General Adult HPI - General Chief complaint: Recheck/Abnormal Lab/Rx Stated complaint: picc line issue Time Seen by Provider: 04/17/18 04:03 Source: patient Mode of arrival: ambulatory Limitations: no limitations - History of Present Illness Initial comments: Is a 37-year-old male who presents emergency Department after pulling out his PICC line. The patient was receiving vancomycin 3 times a day for a staph infection of the left chest wall and underlying osseous structures. The patient states that his girlfriend had an anxiety attack/seizure and he was helping her and his PICC line extending up pulled out. He states that there was some blood at the scene. He denies being lightheaded at all. Denies any numbness, tingling or weakness in the hand. He denies any other complaints at this time. - Related Data Home Medications Medication Instructions Recorded Confirmed No Known Home Medications 03/03/18 03/03/18 Allergies Allergy/AdvReac Type Severity Reaction Status Date / Time Penicillins Allergy Unknown Verified 03/03/18 08:32 Review of Systems ROS Statement: Those systems with pertinent positive or pertinent negative responses have been documented in the HPI. ROS Other: All systems not noted in ROS Statement are negative. Past Medical History Past Medical History: No Reported History Additional Past Medical History / Comment(s): Picc line, HEP C History of Any Multi-Drug Resistant Organisms: MRSA Date of last positivie culture/infection: 03/03/18 MDRO Source:: BLOOD Past Surgical History: No Surgical Hx Reported Additional Past Surgical History / Comment(s): Removal of part of sternum, ribs , and collarbone. Past Anesthesia/Blood Transfusion Reactions: No Reported Reaction Past Psychological History: Anxiety, Bipolar, Depression Smoking Status: Current every day smoker Past Alcohol Use History: Occasional Past Drug Use History: Marijuana General Exam - General Exam Comments Initial Comments: Constitutional: Awake alert Appears comfortable Head: Normocephalic atraumatic Eyes: no conjunctival injection No scleral icterus EOMI Neck: No JVD Supple Heart: Regular rate rhythm normal S1-S2 no murmurs Lungs: Clear to auscultation bilaterally No wheezing No rales Abdomen: Soft nondistended nontender Extremities: Non edematous DP pulses intact Radial pulses intact bilaterally, there is a punctate wound to the medial aspect of the right upper arm. Bleeding is controlled. No ecchymosis or hematoma formation. Neuro: A&Ox3 No focal neurologic deficits Psych: Appropriate mood and affect Limitations: no limitations Course Vital Signs 04/17/18 03:45 Temperature 97.7 F Pulse Rate 104 H Respiratory 17 Rate Blood Pressure 133/86 O2 Sat by Pulse 98 Oximetry Medical Decision Making - Medical Decision Making Is a 37-year-old male who came in after pulling his PICC line out. The patient was monitored for almost an hour. No hematoma formation. We was controlled. The patient was asymptomatic. At this time I do not have anybody to replace his PICC. He is not due for any medications. I told him to call his home care nurse in the morning and see if he get set up for new PICC line. If not he should return emergency Department for IV antibiotics and possible PICC placement if possible. The patient stated he understood. All questions answered. Disposition Clinical Impression: PICC (peripherally inserted central catheter) removal Disposition: HOME SELF-CARE Condition: Stable Instructions: Peripherally Inserted Central Catheters and Midline Catheters in... (DC) Additional Instructions: Please return to ED in the morning to have your antibiotics infused or have a new PICC inserted. Call your home care nurse. Is patient prescribed a controlled substance at d/c from ED?: No Referrals: None,Stated [Primary Care Provider] - 1-2 days
== END 2018-04-17 04:46 | disposition home or self-care (01) ==
LOC: EC 03:45
DX: Z45.2 Encounter for adjustment and management of vascular access device (principal); Z86.14 Personal history of Methicillin resistant Staphylococcus aureus infection; Z86.19 Personal history of other infectious and parasitic diseases; F17.200 Nicotine dependence, unspecified, uncomplicated; Z88.0 Allergy status to penicillin
CPT/HCPCS: 99283

== ENCOUNTER 2018-06-06 16:56 | Inpatient (IN) | payer OTHER ==
[2018-06-06] MEDS ORDERED: ACETAMINOPHEN TAB 500 MG TAB PO STA (17:03)
[2018-06-06] MEDS ORDERED: VANCOMYCIN IV PER PHARMACY 1 EACH MISC MISCELLANE PRN (17:03)
[2018-06-06] MEDS ORDERED: CEFEPIME 1 GM in SODIUM CHLORIDE 0.9% 50 ML IVPB STA (17:04)
[2018-06-06] MEDS ORDERED: VANCOMYCIN 1,500 MG in SODIUM CHLORIDE 0.9% 250 ML IVPB STA (17:12)
[2018-06-06] MEDS: SODIUM CHLORIDE 0.9% 500 ML 500 ML IV SCH ×2 (17:21→17:22)
[2018-06-06 17:53] LABS: HCT 41.9 % (39.0-53.0); HGB 13.5 gm/dL (13.0-17.5); MCH 27.3 pg (25.0-35.0); MCHC 32.3 g/dL (31.0-37.0); MCV 84.6 fL (80.0-100.0); Mean Platelet Volume 6.5; Platelet Count 336 k/uL (150-450); RBC 4.95 m/uL (4.30-5.90); RDW 15.3 % (11.5-15.5); WBC 3.8 k/uL (3.8-10.6)
[2018-06-06 18:01] LABS: Albumin 4.5 g/dL (3.5-5.0); Calcium 10.1 mg/dL (8.4-10.2); Potassium 3.7 mmol/L (3.5-5.1); Total Bilirubin 0.8 mg/dL (0.2-1.3); Total Protein 8.4 g/dL (6.3-8.2)
[2018-06-06 18:07] LABS: Amorphous Sediment,Urine Rare /hpf; Appearance,Urine Clear (Clear); Bilirubin,Urine Negative (Negative); Blood,Urine Negative (Negative); Color,Urine Yellow; Glucose,Urine (UA) Negative (Negative); Hyaline Casts,Urine 1 /lpf (0-2); Ketones,Urine Negative (Negative); Leukocyte Esterase,Urine Negative (Negative); Mucus,Urine Few /hpf; Nitrite,Urine Negative (Negative); PH, Urine 6.5 (5.0-8.0); Protein,Urine 1+ (Negative); RBC,Urine 2 /hpf (0-5); Specific Gravity,Urine 1.022 (1.001-1.035); WBC,Urine 1 /hpf (0-5)
[2018-06-06 18:11] LABS: INR 1.1 (<1.2); Prothrombin Time 10.5 sec (9.0-12.0)
--- NOTE | 2018-06-06 18:25 | XR ---
EXAMINATION TYPE: XR chest 2V DATE OF EXAM: 06/06/2018 COMPARISON: 03/03/2018 HISTORY: Chest pain TECHNIQUE: Frontal and lateral views of the chest are obtained. FINDINGS: Heart and mediastinum are normal. Lungs are clear. Diaphragm is normal. Bony thorax is int act. IMPRESSION: Normal chest. No change.
[2018-06-06 18:31] LABS: Band Neutrophils % 17 %; Lymphocytes # (M) 0.34 k/uL (1.0-4.8); Neutrophils % (M) 74 %; Nucleated Red Blood Cells 0 /100 WBC (0-0); Total Cells Counted 100
[2018-06-06] MEDS ORDERED: SODIUM CHLORIDE 0.9% 1,000 ML IV STA (19:38)
[2018-06-06] MEDS ORDERED: NALOXONE 0.4 MG/ML 1 ML VIAL IV PRN (19:45)
--- NOTE | 2018-06-06 19:45 | ED ---
General Adult HPI - General Chief complaint: Arrhythmia/Palpitations Stated complaint: Medical Clearance Time Seen by Provider: 06/06/18 17:01 Source: police Mode of arrival: wheelchair Limitations: no limitations - History of Present Illness Initial comments: Patient presents to the [facility] with a complaint of palpitations. He has some chills. He has a history of osteomyelitis. He has a history of bacteremia. He continues to use IV drugs. He denies any belly or back or chest pain. He has no focal weakness. He has no nausea or vomiting or diaphoresis. He has no headache, lightheadedness or dizziness. He was not doing anything when he began to feel this way. He has taken no medication for his symptoms. - Related Data Home Medications Medication Instructions Recorded Confirmed Acetaminophen/Diphenhydramine 4 tab PO HS PRN 06/06/18 06/06/18 [Tylenol PM Extra Strength] Gabapentin [Neurontin] 100 mg PO DIRECTED 06/06/18 06/06/18 Methocarbamol [Robaxin-750] 750 mg PO DIRECTED 06/06/18 06/06/18 oxyCODONE HCL [OxyIR] 10 mg PO DIRECTED 06/06/18 06/06/18 Allergies Allergy/AdvReac Type Severity Reaction Status Date / Time Penicillins Allergy Unknown Verified 06/06/18 17:37 Review of Systems ROS Statement: Those systems with pertinent positive or pertinent negative responses have been documented in the HPI. ROS Other: All systems not noted in ROS Statement are negative. Past Medical History Past Medical History: No Reported History Additional Past Medical History / Comment(s): Picc line, HEP C History of Any Multi-Drug Resistant Organisms: MRSA Date of last positivie culture/infection: 03/03/18 MDRO Source:: BLOOD Past Surgical History: No Surgical Hx Reported Additional Past Surgical History / Comment(s): Removal of part of sternum, ribs , and collarbone. Past Anesthesia/Blood Transfusion Reactions: No Reported Reaction Past Psychological History: Anxiety, Bipolar, Depression Smoking Status: Current every day smoker Past Alcohol Use History: Occasional Past Drug Use History: Marijuana General Exam Limitations: no limitations General appearance: alert, in no apparent distress Head exam: Present: atraumatic, normocephalic, normal inspection Eye exam: Present: normal appearance, PERRL, EOMI. Absent: scleral icterus, conjunctival injection, periorbital swelling ENT exam: Present: normal exam, mucous membranes moist Neck exam: Present: normal inspection. Absent: tenderness, meningismus, lymphadenopathy Respiratory exam: Present: normal lung sounds bilaterally. Absent: respiratory distress, wheezes, rales, rhonchi, stridor Cardiovascular Exam: Present: normal rhythm, tachycardia, normal heart sounds. Absent: systolic murmur, diastolic murmur, rubs, gallop, clicks GI/Abdominal exam: Present: soft, normal bowel sounds. Absent: distended, tenderness, guarding, rebound, rigid Extremities exam: Present: normal inspection, full ROM, normal capillary refill. Absent: tenderness, pedal edema, joint swelling, calf tenderness Back exam: Present: normal inspection Neurological exam: Present: alert, oriented X3, CN II-XII intact Psychiatric exam: Present: normal affect, normal mood Skin exam: Present: warm, dry, intact, normal color. Absent: rash Course Vital Signs 06/06/18 06/06/18 06/06/18 17:03 17:06 18:00 Temperature 97.3 F L Pulse Rate 155 H 160 H 131 H Pulse Rate [ 154 H Milk Vendor ] Respiratory 20 16 18 Rate Blood Pressure 109/77 120/81 O2 Sat by Pulse 100 97 98 Oximetry 06/06/18 19:00 Temperature Pulse Rate 137 H Pulse Rate [ Milk Vendor ] Respiratory 19 Rate Blood Pressure O2 Sat by Pulse 96 Oximetry EKG Findings - EKG Comments: EKG Findings:: Twelve-lead EKG shows ventricular rate 155 bpm, short CO interval , normal QRS complexes, no ST elevation or depression, interpreted by me as sinus tachycardia. Medical Decision Making - Medical Decision Making Patient presents for what I believe is bacteremia, causing his sinus tachycardia. I have ordered cultures. I ordered a lactate. Initial lactate is elevated. I ordered a fluid bolus. I started antibiotics. Patient will be admitted to the hospital. - Lab Data Result diagrams: 06/06/18 17:24 06/06/18 17:24 Lab Results 06/06/18 06/06/18 06/06/18 Range/Units 17:24 17:24 17:24 WBC 3.8 (3.8-10.6) k/uL RBC 4.95 (4.30-5.90) m/uL Hgb 13.5 (13.0-17.5) gm/dL Hct 41.9 (39.0-53.0) % MCV 84.6 (80.0-100.0) fL MCH 27.3 (25.0-35.0) pg MCHC 32.3 (31.0-37.0) g/dL RDW 15.3 (11.5-15.5) % Plt Count 336 (150-450) k/uL Neutrophils % (Manual) 74 % Band Neutrophils % 17 % Lymphocytes % (Manual) 9 % Neutrophils # (Manual) 3.40 (1.3-7.7) k/uL Lymphocytes # (Manual) 0.34 L (1.0-4.8) k/uL Nucleated RBCs 0 (0-0) /100 WBC Manual Slide Review Performed RBC Morphology Normal PT 10.5 (9.0-12.0) sec INR 1.1 (<1.2) APTT 22.0 (22.0-30.0) sec Sodium 141 (137-145) mmol/L Potassium 3.7 (3.5-5.1) mmol/L Chloride 104 (98-107) mmol/L Carbon Dioxide 23 (22-30) mmol/L Anion Gap 14 mmol/L BUN 21 H (9-20) mg/dL Creatinine 1.35 H (0.66-1.25) mg/dL Est GFR (CKD-EPI)AfAm 76 (>60 ml/min/1.73 sqM) Est GFR (CKD-EPI)NonAf 66 (>60 ml/min/1.73 sqM) Glucose 123 H (74-99) mg/dL Plasma Lactic Acid Anthony (0.7-2.0) mmol/L Calcium 10.1 (8.4-10.2) mg/dL Total Bilirubin 0.8 (0.2-1.3) mg/dL AST 119 H (17-59) U/L ALT 163 H (21-72) U/L Alkaline Phosphatase 128 H (38-126) U/L Total Protein 8.4 H (6.3-8.2) g/dL Albumin 4.5 (3.5-5.0) g/dL Urine Color Urine Appearance (Clear) Urine pH (5.0-8.0) Ur Specific [place] (1.001-1.035) Urine Protein (Negative) Urine Glucose (UA) (Negative) Urine Ketones (Negative) Urine Blood (Negative) Urine Nitrite (Negative) Urine Bilirubin (Negative) Urine Urobilinogen (<2.0) mg/dL Ur Leukocyte Esterase (Negative) Urine RBC (0-5) /hpf Urine WBC (0-5) /hpf Amorphous Sediment (None) /hpf Hyaline Casts (0-2) /lpf Urine Mucus (None) /hpf 06/06/18 06/06/18 Range/Units 17:24 17:56 WBC (3.8-10.6) k/uL RBC (4.30-5.90) m/uL Hgb (13.0-17.5) gm/dL Hct (39.0-53.0) % MCV (80.0-100.0) fL MCH (25.0-35.0) pg MCHC (31.0-37.0) g/dL RDW (11.5-15.5) % Plt Count (150-450) k/uL Neutrophils % (Manual) % Band Neutrophils % % Lymphocytes % (Manual) % Neutrophils # (Manual) (1.3-7.7) k/uL Lymphocytes # (Manual) (1.0-4.8) k/uL Nucleated RBCs (0-0) /100 WBC Manual Slide Review RBC Morphology PT (9.0-12.0) sec INR (<1.2) APTT (22.0-30.0) sec Sodium (137-145) mmol/L Potassium (3.5-5.1) mmol/L Chloride (98-107) mmol/L Carbon Dioxide (22-30) mmol/L Anion Gap mmol/L BUN (9-20) mg/dL Creatinine (0.66-1.25) mg/dL Est GFR (CKD-EPI)AfAm (>60 ml/min/1.73 sqM) Est GFR (CKD-EPI)NonAf (>60 ml/min/1.73 sqM) Glucose (74-99) mg/dL Plasma Lactic Acid Nathony 3.2 H* (0.7-2.0) mmol/L Calcium (8.4-10.2) mg/dL Total Bilirubin (0.2-1.3) mg/dL AST (17-59) U/L ALT (21-72) U/L Alkaline Phosphatase (38-126) U/L Total Protein (6.3-8.2) g/dL Albumin (3.5-5.0) g/dL Urine Color Yellow Urine Appearance Clear (Clear) Urine pH 6.5 (5.0-8.0) Ur Specific [place] 1.022 (1.001-1.035) Urine Protein 1+ H (Negative) Urine Glucose (UA) Negative (Negative) Urine Ketones Negative (Negative) Urine Blood Negative (Negative) Urine Nitrite Negative (Negative) Urine Bilirubin Negative (Negative) Urine Urobilinogen 2.0 (<2.0) mg/dL Ur Leukocyte Esterase Negative (Negative) Urine RBC 2 (0-5) /hpf Urine WBC 1 (0-5) /hpf Amorphous Sediment Rare H (None) /hpf Hyaline Casts 1 (0-2) /lpf Urine Mucus Few H (None) /hpf Disposition Clinical Impression: Tachycardia, Bacteremia Disposition: ADMITTED IP TO THIS [facility] Condition: Serious Referrals: None,Stated [Primary Care Provider] - 1-2 days
[2018-06-06] MEDS ORDERED: GABAPENTIN 100 MG CAP PO SCH (20:00)
[2018-06-06] MEDS ORDERED: SODIUM CHLORIDE 0.9% 1,000 ML IV ONE (21:31)
[2018-06-06] MEDS ORDERED: ALPRAZolam 0.25 MG TAB PO PRN (22:04)
[2018-06-06 22:15] VITALS: BMI 26.9
[2018-06-06] MEDS: MORPHINE SULFATE 2 MG/ML SYRINGE IVP PRN (22:40)
[2018-06-06] MEDS: FAMOTIDINE 20 MG TAB PO SCH (22:40)
--- NOTE | 2018-06-06 22:41 | P.HPIM ---
History of Present Illness H&P Date: 06/06/18 Chief Complaint: palpitation and tachycardia 37-year-old male with past medical history for hepatitis C, and recent bacteremia and osteomyelitis of the sternum and left clavicle treated and diagnosed 6 weeks ago. Patient claims that today she wasn't compliant with his probation and police showed up to be taken to longterm however when he was examined and checked he was found to be tachycardic for which she was brought to the hospital. Patient claims that since yesterday he wasn't feeling well and today he was feeling weak and tired with some dizziness at times feeling chest pressure feeling anxious and at times having nausea, shortness of breath and excessive sweating otherwise he denies any fever. Patient admits that for the past 6 weeks since he received some oxycodone he was crushing the pills heating it up and injecting it in his right antecubital fossa. He admits to using heroin 2 years ago but he has been clean as he was in longterm. He started shooting again around 2 months ago until he got sick with osteomyelitis and bacteremia and had to have surgery done. Otherwise today denying any GI bleeding any fevers or chills any headache changes in vision or hearing he denies any sick contacts he denies any rashes. Currently he is only complaining of his chronic low back pain, anxiety. He is also feeling that he is withdrawing from opiates In the ED workup revealed sinus tachycardia, for which she was given IV fluid boluses, and labs revealed normal white count, acute kidney injury with lactic acidosis Review of Systems Pertinent positives as noted in HPI. All other systems were reviewed and are negative Past Medical History Past Medical History: No Reported History Additional Past Medical History / Comment(s): Picc line, HEP C History of Any Multi-Drug Resistant Organisms: MRSA Date of last positivie culture/infection: 03/03/18 MDRO Source:: BLOOD Past Surgical History: No Surgical Hx Reported Additional Past Surgical History / Comment(s): Removal of part of sternum, ribs , and collarbone. Past Anesthesia/Blood Transfusion Reactions: No Reported Reaction Past Psychological History: Anxiety, Bipolar, Depression Smoking Status: Current every day smoker Past Alcohol Use History: Occasional Past Drug Use History: Marijuana - Past Family History Family Family Medical History: Diabetes Mellitus Medications and Allergies Home Medications Medication Instructions Recorded Confirmed Type Acetaminophen/Diphenhydramine 4 tab PO HS PRN 06/06/18 06/06/18 History [Tylenol PM Extra Strength] Gabapentin [Neurontin] 100 mg PO DIRECTED 06/06/18 06/06/18 History Methocarbamol [Robaxin-750] 750 mg PO DIRECTED 06/06/18 06/06/18 History oxyCODONE HCL [OxyIR] 10 mg PO DIRECTED 06/06/18 06/06/18 History Allergies Allergy/AdvReac Type Severity Reaction Status Date / Time Penicillins Allergy Unknown Verified 06/06/18 22:03 Physical Exam Vitals: Vital Signs Temp Pulse Pulse Resp BP Pulse Ox 06/06/18 21:18 120 H 16 120/81 98 06/06/18 21:11 120 H 06/06/18 19:00 137 H 19 96 06/06/18 18:00 131 H 18 120/81 98 06/06/18 17:06 160 H 154 H 16 97 06/06/18 17:03 97.3 F L 155 H 20 109/77 100 Intake and Output 06/06/18 06/06/18 06/06/18 06:59 14:59 22:59 Other: Weight 95.254 kg Constitutional: No acute distress, conversant, pleasant Eyes: Anicteric sclerae, moist conjunctiva, no lid-lag Pupils equal round reactive to light ENMT: NC/AT Oropharynx clear, no erythema, exudates Neck: Supple, FROM, no masses, or JVD No carotid bruits No thyromegaly Lungs: Clear to auscultation Clear to percussion Normal respiratory effort, no accessory muscle use Cardiovascular: Heart tachycardic regular No murmurs, gallops, or rubs No peripheral edema Abdominal: Soft Nontender, no guarding, rebound or rigidity Abdomen moving with respiration Normoactive bowel sounds No hepatomegaly, No splenomegaly No palpable mass No abdominal wall hernia noted Skin: Normal temperature, tone, texture, turgor No induration No subcutaneous nodules No rash, lesions No ulcers Scarring over the left clavicle and mid sternum looks well-healed and clean Extremities: Needle lambert over the right antecubital fossa No digital cyanosis No clubbing Pedal pulses intact and symmetrical Radial pulses intact and symmetrical No calf tenderness Psychiatric: Alert and oriented to person, place and time Appropriate affect fair judgment Neuro Muscles Strength 5/5 in all 4 extremities Sensation to light touch grossly present throughout Cranial nerves II-XII grossly intact No focal sensory deficits Lymphatics: no palpable cervical or supraclavicular , or inguinal lymph nodes Results CBC & Chem 7: 06/06/18 17:24 06/06/18 17:24 Labs: Abnormal Lab Results - Last 24 Hours (Table) 06/06/18 06/06/18 06/06/18 Range/Units 17:24 17:24 17:24 Lymphocytes # (Manual) 0.34 L (1.0-4.8) k/uL BUN 21 H (9-20) mg/dL Creatinine 1.35 H (0.66-1.25) mg/dL Glucose 123 H (74-99) mg/dL Plasma Lactic Acid Anthony (0.7-2.0) mmol/L AST 119 H (17-59) U/L ALT 163 H (21-72) U/L Alkaline Phosphatase 128 H (38-126) U/L Total Protein 8.4 H (6.3-8.2) g/dL Urine Protein 1+ H (Negative) Amorphous Sediment Rare H (None) /hpf Urine Mucus Few H (None) /hpf 06/06/18 Range/Units 17:56 Lymphocytes # (Manual) (1.0-4.8) k/uL BUN (9-20) mg/dL Creatinine (0.66-1.25) mg/dL Glucose (74-99) mg/dL Plasma Lactic Acid Anthony 3.2 H* (0.7-2.0) mmol/L AST (17-59) U/L ALT (21-72) U/L Alkaline Phosphatase (38-126) U/L Total Protein (6.3-8.2) g/dL Urine Protein (Negative) Amorphous Sediment (None) /hpf Urine Mucus (None) /hpf Assessment and Plan Assessment: 37-year-old male with recent history of bacteremia and osteomyelitis of the sternum and left clavicle, history of hepatitis C, history of IV drug abuse. Patient admitted under inpatient with anticipated length of stay more than 48 hours due to suspected bacteremia from IV drug abuse. Patient has been crushing oxycodone heating up and shooting it. He is presented today due to tachycardia and feeling generalized sickness malaise anxiety and excessive sweating. Patient also appears to be withdrawing from opiates . he violated his probation and was brought him here for further evaluation Plan: Sinus Tachycardia, rule out underlying bacteremia. This could also be due to opiate withdrawal overstimulation Check blood culture and urine culture Chest x-ray unremarkable White count within normal limits Patient was started on vancomycin Cardiac telemetry Acute kidney injury most likely second to prerenal ATN, nonoliguric IV fluid hydration Avoid nephrotoxic meds Monitor urine output Repeat labs in the morning Lactic acidosis possibly due to dehydration rule out infectious process as opposed IV fluid hydration aggressive Repeat lactic acid History of hepatitis C with elevated liver enzymes Check AFP Consider outpatient follow-up IV drug abuse Patient counseled to quit drug of abuse Tobacco smoking Counseled to quit smoking Nicotine replacement therapy offered Surrogate decision-maker: Patient girlfriend CODE STATUS: Full code DVT prophylaxis: Heparin subcu 3 times a day Discussed with: Patient, ER, RN Anticipated discharge: 48-[address]: Home A total of 60 minutes was spent on the care of this complex patient more than 50 % of the time was spent in counseling and care coordination.
[2018-06-06] MEDS: NICOTINE 21MG/24HR PATCH TRANSDERM SCH (23:45)
[2018-06-06] MEDS: GABAPENTIN 100 MG CAP PO SCH (23:45)
[2018-06-06] MEDS: clonazePAM 0.5 MG TAB PO SCH (23:45)
[2018-06-06] MEDS: SODIUM CHLORIDE 0.9% 1,000 ML IV SCH (23:49)
[2018-06-06] MEDS: MAG HYDROX/AL HYDROX/SIMETH 30 ML CUP PO PRN (23:51)
[2018-06-07] MEDS ORDERED: ASPIRIN 325 MG TAB PO STA (01:28)
[2018-06-07] MEDS: METOPROLOL TARTRATE 12.5 MG TAB PO SCH ×4 (02:29→21:11)
[2018-06-07] MEDS: MORPHINE SULFATE 2 MG/ML SYRINGE IVP PRN ×6 (02:30→23:16)
[2018-06-07 05:34] LABS: Basophils # (A) 0.1 k/uL (0-0.2); Basophils % (A) 0 %; Eosinophils # (A) 0.1 k/uL (0-0.7); Eosinophils % (A) 0 %; HCT 38.1 % (39.0-53.0); HGB 11.9 gm/dL (13.0-17.5); Hypochromasia Slight; Lymphocytes # (A) 0.7 k/uL (1.0-4.8); Lymphocytes % (A) 4 %; MCH 26.7 pg (25.0-35.0); MCHC 31.3 g/dL (31.0-37.0); MCV 85.5 fL (80.0-100.0); Mean Platelet Volume 6.4; Monocytes # (A) 0.8 k/uL (0-1.0); Monocytes % (A) 4 %; Neutrophils # (A) 17.1 k/uL (1.3-7.7); Neutrophils % (A) 90 %; Platelet Count 267 k/uL (150-450); RBC 4.46 m/uL (4.30-5.90); RDW 15.5 % (11.5-15.5)
[2018-06-07 05:43] LABS: ALT 117 U/L (21-72); AST 51 U/L (17-59); Albumin 3.6 g/dL (3.5-5.0); Alkaline Phosphatase 79 U/L (38-126); Anion Gap 15 mmol/L; Blood Urea Nitrogen 19 mg/dL (9-20); Calcium 8.9 mg/dL (8.4-10.2); Carbon Dioxide 17 mmol/L (22-30); Chloride 111 mmol/L (98-107); Glucose 113 mg/dL (74-99); Potassium 4.4 mmol/L (3.5-5.1); Sodium 143 mmol/L (137-145); Total Bilirubin 0.4 mg/dL (0.2-1.3); Total Protein 6.9 g/dL (6.3-8.2)
[2018-06-07] MEDS ORDERED: VANCOMYCIN 1,500 MG in SODIUM CHLORIDE 0.9% 250 ML IVPB SCH (06:00)
[2018-06-07] MEDS: SODIUM CHLORIDE 0.9% 1,000 ML IV SCH ×3 (06:31→23:24)
[2018-06-07] MEDS: GABAPENTIN 100 MG CAP PO SCH ×3 (08:43→21:12)
[2018-06-07] MEDS: HEPARIN SODIUM,PORCINE 5,000 UNIT/ML 1 ML VIAL SQ SCH ×3 (08:43→23:16)
[2018-06-07] MEDS: NICOTINE 21MG/24HR PATCH TRANSDERM SCH (08:43)
[2018-06-07] MEDS: clonazePAM 0.5 MG TAB PO SCH (08:43)
[2018-06-07] MEDS: ASPIRIN 81 MG PO SCH (08:43)
[2018-06-07] MEDS: FAMOTIDINE 20 MG TAB PO SCH ×2 (08:43→21:10)
[2018-06-07 09:11] LABS: Troponin I 0.141 ng/mL (0.000-0.034)
[2018-06-07 09:14] LABS: Creatine Kinase MB 2.7 ng/mL (0.0-2.4)
--- NOTE | 2018-06-07 10:25 | P.PN ---
Subjective Progress Note Date: 06/07/18 Principal diagnosis: Bacteremia, myalgias, fevers, chest pressure Patient seen and examined. No acute events overnight. Patient with multiple complaints. Patient reports chest pressure, continued from last night. He has been persistently tachycardic since admission. Patient reports whole body myalgias. Patient reports going into withdrawal. States he used to inject Oxycodone by crushing pills. He was also on Robaxin, Gabapentin and Klonopin. Also complains of fever and chills. Objective - Vital Signs Vital signs: Vital Signs Temp 98.2 F 06/07/18 08:00 Pulse 109 H 06/07/18 08:00 Resp 20 06/07/18 08:00 BP 113/68 06/07/18 08:00 Pulse Ox 100 06/07/18 08:00 Intake & Output 06/06/18 06/07/18 06/07/18 18:59 06:59 18:59 Intake Total 2250 Balance 2250 Weight 95.254 kg 94.6 kg Intake: Intake, IV Titration 2250 Amount Sodium Chloride 0.9% 1, 750 000 ml @ 150 mls/hr IV . Q6H40M [facility] Rx#:[id number] Sodium Chloride 0.9% 1, 1000 000 ml @ 999 mls/hr IV . Q1H1M [facility] Rx#:[id number] Vancomycin 1,750 mg In 500 Sodium Chloride 0.9% 500 ml 500 ml @ 167 mls/hr IVPB Q8HR [facility] Rx#: [id number] Other: Voiding Method Toilet Toilet # Voids 4 - Exam General: [non toxic], [no distress], [appears at stated age] Derm: [warm], [dry] Head: [atraumatic], [normocephalic], [symmetric] Eyes: [EOMI], [no lid lag], [anicteric sclera] Mouth: [no lip lesion], [mucus membranes moist] Cardiovascular: [S1S2 reg], [sternal scar], [positive DP pulse bilateral], [ tachycardia] Lungs: [CTA bilateral], [no rhonchi, no rales] , [no accessory muscle use] Abdominal: [soft], [ nontender to palpation], [no guarding], [no appreciable organomegaly] Ext: [no gross muscle atrophy], [no edema], [no contractures] Neuro: [ CN II-XI grossly intact], [no focal neuro deficits] Psych: [Alert], [oriented], [appropriate affect] - Labs CBC & Chem 7: 06/07/18 05:10 06/07/18 05:10 Labs: Abnormal Lab Results - Last 24 Hours (Table) 06/06/18 06/06/18 06/06/18 Range/Units 17:24 17:24 17:24 WBC (3.8-10.6) k/uL Hgb (13.0-17.5) gm/dL Hct (39.0-53.0) % Neutrophils # (1.3-7.7) k/uL Lymphocytes # (1.0-4.8) k/uL Lymphocytes # (Manual) 0.34 L (1.0-4.8) k/uL Chloride (98-107) mmol/L Carbon Dioxide (22-30) mmol/L BUN 21 H (9-20) mg/dL Creatinine 1.35 H (0.66-1.25) mg/dL Glucose 123 H (74-99) mg/dL Plasma Lactic Acid Anthony (0.7-2.0) mmol/L AST 119 H (17-59) U/L ALT 163 H (21-72) U/L Alkaline Phosphatase 128 H (38-126) U/L CK-MB (CK-2) (0.0-2.4) ng/mL Troponin I (0.000-0.034) ng/mL Total Protein 8.4 H (6.3-8.2) g/dL Urine Protein 1+ H (Negative) Amorphous Sediment Rare H (None) /hpf Urine Mucus Few H (None) /hpf 06/06/18 06/06/18 06/06/18 Range/Units 17:24 17:56 22:35 WBC (3.8-10.6) k/uL Hgb (13.0-17.5) gm/dL Hct (39.0-53.0) % Neutrophils # (1.3-7.7) k/uL Lymphocytes # (1.0-4.8) k/uL Lymphocytes # (Manual) (1.0-4.8) k/uL Chloride (98-107) mmol/L Carbon Dioxide (22-30) mmol/L BUN (9-20) mg/dL Creatinine (0.66-1.25) mg/dL Glucose (74-99) mg/dL Plasma Lactic Acid Anthony 3.2 H* (0.7-2.0) mmol/L AST (17-59) U/L ALT (21-72) U/L Alkaline Phosphatase (38-126) U/L CK-MB (CK-2) (0.0-2.4) ng/mL Troponin I 0.097 H* 0.230 H* (0.000-0.034) ng/mL Total Protein (6.3-8.2) g/dL Urine Protein (Negative) Amorphous Sediment (None) /hpf Urine Mucus (None) /hpf 06/06/18 06/07/18 06/07/18 Range/Units 22:58 05:10 05:10 WBC 19.0 H (3.8-10.6) k/uL Hgb 11.9 L (13.0-17.5) gm/dL Hct 38.1 L (39.0-53.0) % Neutrophils # 17.1 H (1.3-7.7) k/uL Lymphocytes # 0.7 L (1.0-4.8) k/uL Lymphocytes # (Manual) (1.0-4.8) k/uL Chloride (98-107) mmol/L Carbon Dioxide (22-30) mmol/L BUN (9-20) mg/dL Creatinine (0.66-1.25) mg/dL Glucose (74-99) mg/dL Plasma Lactic Acid Anthony 3.3 H* (0.7-2.0) mmol/L AST (17-59) U/L ALT (21-72) U/L Alkaline Phosphatase (38-126) U/L CK-MB (CK-2) (0.0-2.4) ng/mL Troponin I 0.159 H* (0.000-0.034) ng/mL Total Protein (6.3-8.2) g/dL Urine Protein (Negative) Amorphous Sediment (None) /hpf Urine Mucus (None) /hpf 06/07/18 06/07/18 Range/Units 05:10 08:09 WBC (3.8-10.6) k/uL Hgb (13.0-17.5) gm/dL Hct (39.0-53.0) % Neutrophils # (1.3-7.7) k/uL Lymphocytes # (1.0-4.8) k/uL Lymphocytes # (Manual) (1.0-4.8) k/uL Chloride 111 H (98-107) mmol/L Carbon Dioxide 17 L (22-30) mmol/L BUN (9-20) mg/dL Creatinine (0.66-1.25) mg/dL Glucose 113 H (74-99) mg/dL Plasma Lactic Acid Anthony (0.7-2.0) mmol/L AST (17-59) U/L ALT 117 H (21-72) U/L Alkaline Phosphatase (38-126) U/L CK-MB (CK-2) 2.7 H (0.0-2.4) ng/mL Troponin I 0.141 H* (0.000-0.034) ng/mL Total Protein (6.3-8.2) g/dL Urine Protein (Negative) Amorphous Sediment (None) /hpf Urine Mucus (None) /hpf Microbiology - Last 24 Hours (Table) 06/06/18 17:24 Urine Culture - Preliminary Urine,Voided Assessment and Plan Assessment: Assessment and Plan 1. Sepsis: Source of infection from IVDU (previous admission for chest wound ( due to IVDU), transferred to OSH, underwent 3 Sx procedures and received 6 weeks of IV Abx). HR consistently > 90. Leukocytosis of 19 with neutrophilia. Lactic acid of 3.2 to 3.3 to 1.9. CXR is negative for acute process. Started on Vancomycin 1750 IV QD and Cefepime 2g IV TID. Continue NS at 150 cc/h. FU BCx, UCx, Echocardiogram, ID consult 2. Chest pain: Pressure like, likely due to demand ischemia, plans to r/o ACS. Troponin 0.097, 0.230, 0.159, 0.141 with EKG showing sinus tachycardia. CXR is negative for acute process. Pain management with [place] and Morphine IV PRN. Continue ASA 81 mg PO QD, Metoprolol 12.5 mg PO BID. Telemetry monitoring. FU Echocardiogram, Cardiology consult 3. Tachycardia: Sinus - seen on EKG. Multiple reasons - drug withdrawal vs. sepsis. Continue IVF and IV Abx. Ensure adequate pain control. Will start Methadone for opiate withdrawal and resume Klonopin, Roboxin and Neurontin. Starting Metoprolol 12.5 mg PO BID. Telemetry monitoring. FU Cardiology 4. HyperCl metabolic acidosis: Cl 111, CO2 17. Previously had Lactic acidosis as well. Likely due to IVF. Daily BMP. 5. Polysubstance use: Start Methadone 15 mg PO QD. Start Klonopin 1 mg PO TID. Start Robaxin 750 mg PO TID and Gabapentin 100 mg PO TID. Continue Habitrol 21 mg TRANSDERM QD. FU CPK 6. Hepatitis C: Previously diagnosed. AST 117. Needs close FU in the outPT setting. FU AFP 7. DVT/GI Prophylaxis: Heparin 5000 units SUBCUT TID, Pepcid 20 mg PO BID. Resolved: Lactic acidosis
[2018-06-07] MEDS: METHADONE 5 MG TAB PO SCH (10:51)
[2018-06-07] MEDS: HYDROcodone/APAP 5-325MG 1 EACH TAB PO PRN ×2 (13:07→21:11)
[2018-06-07] MEDS ORDERED: RX INFO: IV CONTRAST WAS GIVEN 1 EACH MISC MISCELLANE PRN (13:53)
--- NOTE | 2018-06-07 14:11 | P.CRDCN ---
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 Apparently patient took some Adderall and OxyContin which she injected and was not feeling well, had a rapid heartbeat and some chest discomfort. Because of this he was noncompliant with his probation, the police came to his house house and took him to group home however they found him to have an elevated heart rate for which they brought him to the hospital. Patient was found to be in sinus tachycardia and has been tachycardic since admission. Also found to have elevated lactic acid and elevated troponins. Apparently, the patient was discharged from [facility] with a PICC line in place and was using this to inject IV drugs. According to nursing staff , this PICC line Pulled out at home. Patient is currently going through opiate withdrawal. We consulted for tachycardia. Past Medical History Past Medical History: No Reported History Additional Past Medical History / Comment(s): Picc line, HEP C History of Any Multi-Drug Resistant Organisms: MRSA Date of last positivie culture/infection: 03/03/18 MDRO Source:: BLOOD Past Surgical History: No Surgical Hx Reported Additional Past Surgical History / Comment(s): Removal of part of sternum, ribs , and collarbone. Past Anesthesia/Blood Transfusion Reactions: No Reported Reaction Past Psychological History: Anxiety, Bipolar, Depression Smoking Status: Current every day smoker Past Alcohol Use History: Occasional Past Drug Use History: Marijuana - Past Family History Family Family Medical History: Diabetes Mellitus Medications and Allergies Home Medications Medication Instructions Recorded Confirmed Type Acetaminophen/Diphenhydramine 4 tab PO HS PRN 06/06/18 06/06/18 History [Tylenol PM Extra Strength] Gabapentin [Neurontin] 100 mg PO TID 06/06/18 06/06/18 History Methocarbamol [Robaxin-750] 750 mg PO Q8HR 06/06/18 06/06/18 History oxyCODONE HCL [OxyIR] 10 mg PO DIRECTED 06/06/18 06/06/18 History Allergies Allergy/AdvReac Type Severity Reaction Status Date / Time Penicillins Allergy Unknown Verified 06/06/18 22:03 Physical Exam Vitals: Vital Signs Temp Pulse Pulse Pulse Resp BP BP 06/07/18 11:48 90 06/07/18 11:43 98.1 F 90 20 119/74 06/07/18 08:00 98.2 F 109 H 20 113/68 06/07/18 06:15 98.4 F 108 H 17 118/67 06/07/18 04:10 115 H 17 06/07/18 02:15 111 H 17 06/07/18 01:38 98.0 F 114 H 17 112/66 06/06/18 22:15 118 H 18 06/06/18 22:00 97.9 F 117 H 18 112/73 06/06/18 21:18 120 H 16 120/81 06/06/18 21:11 120 H 06/06/18 19:00 137 H 19 06/06/18 18:00 131 H 18 120/81 06/06/18 17:06 160 H 154 H 16 06/06/18 17:03 97.3 F L 155 H 20 109/77 Pulse Ox 06/07/18 11:48 06/07/18 11:43 97 06/07/18 08:00 100 06/07/18 06:15 95 06/07/18 04:10 06/07/18 02:15 06/07/18 01:38 97 06/06/18 22:15 06/06/18 22:00 98 06/06/18 21:18 98 06/06/18 21:11 06/06/18 19:00 96 06/06/18 18:00 98 06/06/18 17:06 97 06/06/18 17:03 100 Intake and Output 06/06/18 06/07/18 06/07/18 22:59 06:59 14:59 Intake Total 2250 1200 Balance 2250 1200 Intake: Intake, IV Titration 2250 1200 Amount Sodium Chloride 0.9% 1, 750 1200 000 ml @ 150 mls/hr IV . Q6H40M [facility] Rx#:[id number] Sodium Chloride 0.9% 1, 1000 000 ml @ 999 mls/hr IV . Q1H1M [facility] Rx#:[id number] Vancomycin 1,750 mg In 500 Sodium Chloride 0.9% 500 ml 500 ml @ 167 mls/hr IVPB Q8HR [facility] Rx#: [id number] Other: Voiding Method Toilet Toilet Toilet # Voids 4 3 Weight 95.254 kg 94.6 kg PHYSICAL EXAMINATION: HEENT: Head is atraumatic, normocephalic. Pupils equal, round. Neck is supple. There is no elevated jugular venous pressure. HEART EXAMINATION: Heart sounds regular, S1 and S2 normal. No murmur or gallop heard. CHEST EXAMINATION: Lungs are clear to auscultation and precussion. No chest wall tenderness is noted on palpation or with deep breathing. ABDOMEN: Soft, mild tenderness to palpation. Bowel sounds are heard. No organomegaly noted. EXTREMITIES: 2+ peripheral pulses with no evidence of peripheral edema and no calf tenderness noted. NEUROLOGIC patient is awake, alert and oriented x3. . Results 06/07/18 05:10 06/07/18 05:10 Cardiac Enzymes 06/06/18 06/06/18 06/06/18 Range/Units 17:24 17:24 22:35 AST 119 H (17-59) U/L CK-MB (CK-2) (0.0-2.4) ng/mL Troponin I 0.097 H* 0.230 H* (0.000-0.034) ng/mL 06/07/18 06/07/18 06/07/18 Range/Units 05:10 05:10 08:09 AST 51 (17-59) U/L CK-MB (CK-2) 2.7 H (0.0-2.4) ng/mL Troponin I 0.159 H* 0.141 H* (0.000-0.034) ng/mL Coagulation 06/06/18 Range/Units 17:24 PT 10.5 (9.0-12.0) sec APTT 22.0 (22.0-30.0) sec CBC 06/06/18 06/07/18 Range/Units 17:24 05:10 WBC 3.8 19.0 H (3.8-10.6) k/uL RBC 4.95 4.46 (4.30-5.90) m/uL Hgb 13.5 11.9 L (13.0-17.5) gm/dL Hct 41.9 38.1 L (39.0-53.0) % Plt Count 336 267 (150-450) k/uL Comprehensive Metabolic Panel 06/06/18 06/07/18 Range/Units 17:24 05:10 Sodium 141 143 (137-145) mmol/L Potassium 3.7 4.4 (3.5-5.1) mmol/L Chloride 104 111 H (98-107) mmol/L Carbon Dioxide 23 17 L (22-30) mmol/L BUN 21 H 19 (9-20) mg/dL Creatinine 1.35 H 0.95 (0.66-1.25) mg/dL Glucose 123 H 113 H (74-99) mg/dL Calcium 10.1 8.9 (8.4-10.2) mg/dL AST 119 H 51 (17-59) U/L ALT 163 H 117 H (21-72) U/L Alkaline Phosphatase 128 H 79 (38-126) U/L Total Protein 8.4 H 6.9 (6.3-8.2) g/dL Albumin 4.5 3.6 (3.5-5.0) g/dL Current Medications Generic Name Dose Route Start Last Admin Trade Name Freq PRN Reason Stop Dose Admin Hydrocodone Bitart/Acetaminophen 1 each 06/07/18 10:08 06/07/18 13:07 Rew 5-325 PO 1 each Q4HR PRN Administration Pain 1-5 Al Hydroxide/Mg Hydroxide 30 ml 06/06/18 22:04 06/06/18 23:51 Maalox PO 30 ml Q4HR PRN Administration GI Upset Aspirin 81 mg 06/07/18 09:00 06/07/18 08:43 Aspirin PO 81 mg DAILY [facility] Administration Clonazepam 1 mg 06/07/18 16:00 Klonopin PO TID [facility] Famotidine 20 mg 06/06/18 22:15 06/07/18 08:43 Pepcid PO 20 mg BID [facility] Administration Gabapentin 100 mg 06/06/18 23:00 06/07/18 08:43 Neurontin PO 100 mg TID [facility] Administration Heparin Sodium (Porcine) 5,000 unit 06/07/18 08:00 06/07/18 08:43 Heparin SQ 5,000 unit Q8HR [facility] Administration Sodium Chloride 1,000 mls @ 150 mls/hr 06/06/18 21:30 06/07/18 06:31 Saline 0.9% IV 150 mls/hr .Q6H40M [facility] Administration Vancomycin HCl 1,750 mg/ 500 mls @ 167 mls/hr 06/07/18 16:00 Sodium Chloride IVPB Q8HR [facility] Cefepime HCl 2 gm/ Sodium 50 mls @ 100 mls/hr 06/07/18 16:00 Chloride IVPB Q8HR [facility] Methadone HCl 15 mg 06/07/18 10:30 06/07/18 10:51 Dolophine PO 15 mg DAILY [facility] Administration Methocarbamol 750 mg 06/07/18 16:00 Robaxin PO Q8HR [facility] Metoprolol Tartrate 12.5 mg 06/07/18 01:30 06/07/18 08:50 Lopressor PO 12.5 mg BID [facility] Administration Morphine Sulfate 2 mg 06/07/18 10:08 06/07/18 10:36 Morphine Sulfate (Inj) IVP 2 mg Q4H PRN Administration Pain 6-10 Naloxone HCl 0.2 mg 06/06/18 19:45 Narcan IV Q2M PRN Opioid Reversal Nicotine 1 patch 06/06/18 23:30 06/07/18 08:43 Habitrol 21mg/24hr Patch TRANSDERM 1 patch DAILY [facility] Administration Intake and Output 06/06/18 06/07/18 06/07/18 22:59 06:59 14:59 Intake Total 2250 1200 Balance 2250 1200 Intake: Intake, IV Titration 2250 1200 Amount Sodium Chloride 0.9% 1, 750 1200 000 ml @ 150 mls/hr IV . Q6H40M [facility] Rx#:[id number] Sodium Chloride 0.9% 1, 1000 000 ml @ 999 mls/hr IV . Q1H1M [facility] Rx#:[id number] Vancomycin 1,750 mg In 500 Sodium Chloride 0.9% 500 ml 500 ml @ 167 mls/hr IVPB Q8HR [facility] Rx#: [id number] Other: Voiding Method Toilet Toilet Toilet # Voids 4 3 Weight 95.254 kg 94.6 kg 06/07/18 05:10 06/07/18 05:10 Assessment and Plan Assessment: #1 sepsis #2 chest pain at rest #3 sinus tachycardia #4 elevated troponin, likely due to supply demand mismatch secondary to tachycardia, stimulant abuse and sepsis #5 hepatitis C complains of abdominal distention and tenderness Plan: From orthotic finish grinding technician perspective, we'll obtain a 2-D echo with Doppler. Treatment of underlying sepsis and opiate withdrawal likely to resolve the tachycardia. We will follow the patient right further recommendations accordingly. ASSISTANT PROFESSOR OF THEATER note has been reviewed, I agree with a documented findings and plan of care. Patient was seen and examined.
--- NOTE | 2018-06-07 14:33 | XR ---
EXAMINATION TYPE: XR foot complete LT DATE OF EXAM: 06/07/2018 CLINICAL HISTORY: 37-year-old male with left great toe pain TECHNIQUE: Frontal, lateral, and oblique images of the left foot are obtained. COMPARISON: None FINDINGS: There is no acute fracture/dislocation evident in the left foot. The joint spaces in the left foot appear within normal limits. The overlying soft tissue appears unremarkable. The great toe appears unremarkable. No radiopaque foreign bodies. IMPRESSION: No acute fracture or dislocation in the left foot. No concerning radiographic features in volving the left great toe.
[2018-06-07] MEDS ORDERED: CEFEPIME 2 GM in SODIUM CHLORIDE 0.9% 50 ML IVPB SCH (16:00)
--- NOTE | 2018-06-07 16:14 | CT ---
EXAMINATION TYPE: CT chest w con DATE OF EXAM: 06/07/2018 COMPARISON: NONE HISTORY: Left upper chest pain and tenderness. CT DLP: 466.4 mGycm. Automated Exposure Control for Dose Reduction was Utilized. TECHNIQUE: CT scan of the thorax is performed following with IV Contrast, patient injected with 100m l mL of Isovue 300. FINDINGS: LUNGS: The lungs are grossly clear, there is no concerning parenchymal mass or nodule identified. A t iny 2 mm nodule in the right upper lobe. There is no pleural effusion or pneumothorax seen. The tr acheobronchial tree is patent. MEDIASTINUM: There are no greater than 1 cm hilar or mediastinal lymph nodes. No pericardial effusi on is seen. OTHER: Erosion is identified of the sternal end of the left clavicle as well as erosive type changes of the superior lateral left aspect of the manubrium. This is new in the interval and at the site of a previous subcutaneous inflammatory type changes of the anterior chest wall. IMPRESSION: Left-sided sternoclavicular joint erosion with surrounding inflammatory-type changes. The osseous ero sive changes are new in the interval. The degree of surrounding soft tissue swelling has decreased in the interval. Findings are favored to represent sequela of infection with resultant osteomyelitis. O ther etiologies are possible.
[2018-06-07] MEDS: clonazePAM 1 MG TAB PO SCH ×2 (16:18→21:09)
[2018-06-07] MEDS: METHOCARBAMOL 750 MG TAB PO SCH ×2 (16:19→23:15)
[2018-06-07] MEDS: VANCOMYCIN 1,750 MG in SODIUM CHLORIDE 0.9% 500 ML 500 ML IVPB SCH ×2 (16:56→23:24)
[2018-06-07] MEDS ORDERED: clonazePAM 1 MG TAB PO STA (21:02)
[2018-06-07] MEDS: MAG HYDROX/AL HYDROX/SIMETH 30 ML CUP PO PRN (23:24)
[2018-06-08] MEDS: HYDROcodone/APAP 5-325MG 1 EACH TAB PO PRN ×4 (01:49→23:36)
[2018-06-08] MEDS: MORPHINE SULFATE 2 MG/ML SYRINGE IVP PRN ×5 (03:01→20:55)
[2018-06-08 06:23] LABS: Anion Gap 3 mmol/L; Blood Urea Nitrogen 21 mg/dL (9-20); Calcium 8.6 mg/dL (8.4-10.2); Carbon Dioxide 25 mmol/L (22-30); Chloride 111 mmol/L (98-107); Creatine Kinase 32 U/L (55-170); Glucose 102 mg/dL (74-99); Potassium 4.3 mmol/L (3.5-5.1); Sodium 139 mmol/L (137-145)
[2018-06-08] MEDS: SODIUM CHLORIDE 0.9% 1,000 ML IV SCH ×4 (06:28→14:24)
[2018-06-08] MEDS: NICOTINE 21MG/24HR PATCH TRANSDERM SCH (08:34)
[2018-06-08] MEDS: HEPARIN SODIUM,PORCINE 5,000 UNIT/ML 1 ML VIAL SQ SCH ×2 (08:34→15:34)
[2018-06-08] MEDS: clonazePAM 1 MG TAB PO SCH ×3 (08:35→20:50)
[2018-06-08] MEDS: METHADONE 5 MG TAB PO SCH (08:35)
[2018-06-08] MEDS: ASPIRIN 81 MG PO SCH (08:36)
[2018-06-08] MEDS: FAMOTIDINE 20 MG TAB PO SCH ×2 (08:36→20:50)
[2018-06-08] MEDS: GABAPENTIN 100 MG CAP PO SCH ×3 (08:36→20:49)
[2018-06-08] MEDS: METHOCARBAMOL 750 MG TAB PO SCH ×3 (09:22→23:31)
--- NOTE | 2018-06-08 09:34 | P.PN ---
Subjective Progress Note Date: 06/08/18 Principal diagnosis: Chills, myalgias Patient was seen and examined. No acute events overnight. Patient reports great improvement in his symptoms. Patient reports improvement in his chest pain, though persistent "pressure like ". His heart rate has since become normal. Patient reports improvement in his withdrawal symptoms since starting methadone. Patient states that methadone works for about 4 hours, continues to experience withdrawal symptoms after that. He denies any fever or chills. Objective - Vital Signs Vital signs: Vital Signs Temp 98.1 F 06/08/18 04:00 Pulse 95 06/08/18 08:00 Resp 16 06/08/18 08:00 BP 113/69 06/08/18 04:00 Pulse Ox 95 06/08/18 04:00 Intake & Output 06/07/18 06/08/18 06/08/18 18:59 06:59 18:59 Intake Total 2040 480 240 Balance 2040 480 240 Weight 99.7 kg Intake: Intake, IV Titration 1200 Amount Sodium Chloride 0.9% 1, 1200 000 ml @ 150 mls/hr IV . Q6H40M [facility] Rx#:[id number] Oral 840 480 240 Other: Voiding Method Toilet Toilet Toilet # Voids 3 - Exam General: [non toxic], [no distress], [appears at stated age] Derm: [warm], [dry] Head: [atraumatic], [normocephalic], [symmetric] Eyes: [EOMI], [no lid lag], [anicteric sclera] Mouth: [no lip lesion], [mucus membranes moist] Cardiovascular: [S1S2 reg], [sternal scar], [positive DP pulse bilateral] Lungs: [CTA bilateral], [no rhonchi, no rales] , [no accessory muscle use] Abdominal: [soft], [ nontender to palpation], [no guarding], [no appreciable organomegaly] Ext: [no gross muscle atrophy], [no edema], [no contractures] Neuro: [no focal neuro deficits] Psych: [Alert], [oriented], [appropriate affect] - Labs CBC & Chem 7: 06/07/18 05:10 06/08/18 05:46 Labs: Abnormal Lab Results - Last 24 Hours (Table) 11/05/1506/07/18 06/08/18 Range/Units 05:10 05:10 05:46 ESR 25 H (0-15) mm/hr Chloride 111 H (98-107) mmol/L BUN 21 H (9-20) mg/dL Glucose 102 H (74-99) mg/dL Creatine Kinase 32 L (55-170) U/L C-Reactive Protein 174.4 H (<10.0) mg/L Microbiology - Last 24 Hours (Table) 06/06/18 17:24 Urine Culture - Final Urine,Voided 06/06/18 17:24 Blood Culture - Preliminary Blood No Growth after 24 hours Assessment and Plan Assessment: Assessment and Plan 1. Sepsis: Source of infection from IVDU (previous admission for chest wound ( due to IVDU), transferred to OSH, underwent 3 Sx procedures and received 5/6 weeks of IV Abx). HR consistently > 90, Leukocytosis of 19 with neutrophilia on admission. Lactic acid of 3.2 to 3.3 to 1.9. CXR is negative for acute process. CT chest shows sternal clavicular joint erosion with inflammatory type changes , osteomyelitis. BCx prelim negative after 24H. Continued on Vancomycin 1750 IV QD and Cefepime 2g IV TID. Continue NS at 150 cc/h. FU BCx, Echocardiogram, ID consult 2. Chest pain: Pressure like, likely due to demand ischemia, ACS ruled out. Troponin 0.097, 0.230, 0.159, 0.141 with EKG showing sinus tachycardia. CXR is negative for acute process. Pain management with [place] and Morphine IV PRN. Continue ASA 81 mg PO QD, Metoprolol 12.5 mg PO BID. Telemetry monitoring. FU Echocardiogram, Cardiology consult 3. Polysubstance use: Change Methadone from 15 mg PO QD to 10 mg PO BID. Start Klonopin 1 mg PO TID. Start Robaxin 750 mg PO TID and Gabapentin 100 mg PO TID. Continue Habitrol 21 mg TRANSDERM QD. CPK within normal limits. 4. Hepatitis C: Previously diagnosed. AST 117. Needs close FU in the outPT setting. AFP within normal limits. 5. DVT/GI Prophylaxis: Heparin 5000 units SUBCUT TID, Pepcid 20 mg PO BID. Resolved: Lactic acidosis, Tachycardia, HyperCl metabolic acidosis Tachycardia and Lactic acidosis resolved. Withdrawal symptoms mostly controlled. Sepsis rule out - BCx prelim negative, CT chest showing OM of the sternum. Patient reports receiving 5/6 weeks of IV Abx at home, got cut out short due to insurance reasons. Will follow ID recommendations.
[2018-06-08] MEDS: VANCOMYCIN 1,750 MG in SODIUM CHLORIDE 0.9% 500 ML 500 ML IVPB SCH ×3 (09:46→23:30)
[2018-06-08 10:22] LABS: Basophils % (A) 0 %; Eosinophils # (A) 0.4 k/uL (0-0.7); Eosinophils % (A) 3 %; HCT 35.4 % (39.0-53.0); HGB 11.1 gm/dL (13.0-17.5); Hypochromasia Moderate; Lymphocytes # (A) 1.7 k/uL (1.0-4.8); Lymphocytes % (A) 12 %; MCH 27.5 pg (25.0-35.0); MCHC 31.3 g/dL (31.0-37.0); MCV 87.7 fL (80.0-100.0); Mean Platelet Volume 7.3; Monocytes # (A) 0.8 k/uL (0-1.0); Monocytes % (A) 6 %; Neutrophils # (A) 10.8 k/uL (1.3-7.7); Neutrophils % (A) 76 %; Platelet Count 225 k/uL (150-450); RBC 4.03 m/uL (4.30-5.90); RDW 15.8 % (11.5-15.5); WBC 14.1 k/uL (3.8-10.6)
--- NOTE | 2018-06-08 11:14 | CONS ---
CONSULTATION DATE OF SERVICE: 06/07/2018. REASON FOR CONSULTATION: Possible infection and history of MRSA bacteremia. HISTORY OF PRESENT ILLNESS: The patient is a 37-year-old male with a past medical history significant for MRSA bacteremia from use beginning off February 2018. The patient did have a evidence of a sternoclavicular area abscess and osteomyelitis. Patient subsequently has been transferred to [facility] where the patient did have surgery for the same with drainage of an abscess. The patient subsequently did get a PICC line and was getting antibiotics at home. However, his antibiotics were discontinued in April when he lost his insurance. The patient is not very clear about his followups or if he had any workup done to see if infection has completely gone. The patient is now presenting to the [facility] with chief complaint of palpitation. The patient has not been feeling well for the last week and so the patient has been complaining of pain in his sternal and left chest area, more of a dull aching pain with intensity of 7 to 8/10 and no radiation. The patient denies having any headache. No cough or sputum production. Some nausea but no vomiting. No abdominal pain or any diarrhea. With these symptoms, the patient has been evaluated by the ER physician. The patient noted to have significant tachycardia with heart rates of 117. He did not have any fever. Initial white count was not elevated, however, repeat was elevated at 19,000. Blood culture has been obtained. The patient also has evidence of elevated lactic acid and the troponin. The patient has been started on cefepime and vancomycin. Infectious Disease was consulted for further recommendation because of his bacteremia. The patient also complaining of pain to his left big toe that has been going on for the last few days. He did not recall any history of any trauma. Pain is mostly throbbing 4-5/10 and no radiation with associated swelling of his left big toe but no redness, skin breakdown or any drainage. REVIEW OF SYSTEMS: CONSTITUTIONAL: Positive for weakness, some chills, but denies high-grade fever. EYES: No complaint. ENT: No complaint. RESPIRATORY: As per HPI. CARDIOVASCULAR: As per HPI. GENITOURINARY: No complaint. GASTROINTESTINAL: No complaint. MUSCULOSKELETAL: No complaint. INTEGUMENTARY: No complaint. PSYCHOLOGICAL: No complaint. ENDOCRINE: No complaint. NEUROLOGICAL: No complaint. PAST MEDICAL HISTORY: Significant for MRSA osteomyelitis of the sternum and left sternoclavicular joint. History of hepatitis C. PAST SURGICAL HISTORY: Recent surgery at the [facility] with removal of part of sternum, ribs and collar bone. PSYCHOLOGICAL HISTORY: Positive for anxiety, bipolar and depression. SOCIAL HISTORY: The patient current everyday smoker. Does admit to drinking and marijuana use and also admitted to crushing hydrocodone and injecting himself. Last time he used IV drugs was yesterday. FAMILY HISTORY: No pertinent findings noticed. ALLERGIES: PENICILLIN. MEDICATION: Currently the patient is on vancomycin pharmacy to dose, nicotine patch, Narcan, morphine sulfate, Lopressor, Robaxin, methadone, heparin, Neurontin, Pepcid, Klonopin, cefazolin 2 g q.8, aspirin, Maalox, and [place]. EXAMINATION: Blood pressure 109/73 with a pulse of 83, temperature 98.1. He is 98% on room air. General description is a middle aged male up in the room in no distress. No tachypnea or accessory muscle of respiration use. HEENT: Shows slight pallor. No scleral icterus. Oral mucosa is dry. No pharyngeal erythema or thrush. NECK: Trachea central, no thyromegaly. LUNGS: Unlabored breathing with decreased breath sounds at the bases. No wheeze or crackle. HEART: S1, S2. Regular rate and rhythm. No murmur. ABDOMEN: Soft, no tenderness. No guarding or rigidity. EXTREMITIES: No edema feet. SKIN EXAMINATION: No rashes or mass palpable. The patient's incision to the chest wall currently healed. He did have mild tenderness on palpation of the area. No open wound or any drainage. NEUROLOGICAL: Patient is awake, alert, oriented. Mood and affect normal. LABS: Hemoglobin is 11.9, white of 19,000, BUN of 19, creatinine 0.95. Electrolytes have been normal. ALT slightly elevated. CRP is 174.4. Troponin has been elevated. Blood culture obtained currently pending. Blood cultures 03/03 were positive for MRSA. IMPRESSION/PLAN: 1. Patient admitted to the hospital with generalized weakness, palpitation and the patient did complain of pain in his anterior and left upper chest wall area at the site of the osteomyelitis and surgery at the [facility] for his MRSA bacteremia for which the patient was getting antibiotic until April. However, he is not very clear about the followup or if any blood work or other neurologic test has been done to document a complete healing of infection with concern highly for possible left sternoclavicular osteomyelitis. Rocephin for the same antibiotic therapy accordingly, more likely the organism that needs to be cover will be the MRSA. 2. Patient with left bit toe pain mostly ingrowing toenail with no evidence of cellulitis or open wound. PLAN: 1. CT of the chest with contrast has been requested to make sure there is no evidence of any abscess that may need to be drained and to rule out left sternoclavicular joint osteomyelitis. 2. Vancomycin pharmacy to dose, target of 15. Clinically doubt gram-negative infection so that will need to be discontinued. 3. Obtain x-rays of the left foot area. 4. We will follow his clinical condition and culture to further adjust medication if needed. Thank you for this consultation. Will follow this patient along with you. MMODL / IJN: [id number] /
--- NOTE | 2018-06-08 16:01 | ECHOF ---
Referral Reason:Fever with IVDU MEASUREMENTS -------- HEIGHT: 188.0 cm WEIGHT: 94.3 kg BP: 113/68 RVIDd: 2.6 cm (< 3.3) IVSd: 1.1 cm (0.6 - 1.1) LVIDd: 5.4 cm (3.9 - 5.3) LVPWd: 1.1 cm (0.6 - 1.1) IVSs: 1.3 cm LVIDs: 3.7 cm LVPWs: 1.3 cm LA Diam: 2.2 cm (2.7 - 3.8) LAESV Index (A-L): 26.87 ml/m Ao Diam: 2.8 cm (2.0 - 3.7) AV Cusp: 2.2 cm (1.5 - 2.6) LA Diam: 3.2 cm (2.7 - 3.8) EPSS: 0.4 cm MV E Amol: 0.93 m/s MV DecT: 293 ms MV A Amol: 0.90 m/s MV E/A Ratio: 1.03 RAP: 5.00 mmHg RVSP: 25.81 mmHg MV EF SLOPE: 90.18 mm/s (70 - 150) MV EXCURSION: 1.53 cm (> 18.000) FINDINGS -------- Sinus rhythm. This was a technically difficult study with suboptimal views. The left ventricular size is normal. There is borderline concentric left ventricular hypertrophy. Overall left ventricular systolic function is normal with, an EF between 55 - 60 %. The right ventricle is normal in size and function. Normal LA size by volume 22+/-6 ml/m2. The right atrium is normal in size. 4 ml of [place] was utilized for enhancement of images. The aortic valve is trileaflet, and appears structurally normal. No aortic stenosis or regurgitation. Mild mitral annular calcification present. There is trace to mild mitral regurgitation. Trace tricuspid regurgitation present. Right ventricular systolic pressure is normal at < 35 mmHg. There is no evidence of pulmonary hypertension. Trace/mild (physiologic) pulmonic regurgitation. The aortic root size is normal. Normal inferior vena cava with normal inspiratory collapse consistent with estimated right atrial pre ssure of 5 mmHg. There is no pericardial effusion. CONCLUSIONS -------- 1. Sinus rhythm. 2. This was a technically difficult study with suboptimal views. 3. The left ventricular size is normal. 4. There is borderline concentric left ventricular hypertrophy. 5. Overall left ventricular systolic function is normal with, an EF between 55 - 60 %. 6. Normal LA size by volume 22+/-6 ml/m2. 7. 4 ml of Lumason was utilized for enhancement of images. 8. The aortic valve is trileaflet, and appears structurally normal. No aortic stenosis or regurgitati on. 9. Mild mitral annular calcification present. 10. There is trace to mild mitral regurgitation. 11. Trace tricuspid regurgitation present. 12. Right ventricular systolic pressure is normal at < 35 mmHg. 13. There is no evidence of pulmonary hypertension. 14. Trace/mild (physiologic) pulmonic regurgitation. 15. The aortic root size is normal. 16. There is no pericardial effusion. AIRFRAME TECHNICAL OFFICER: Xiang Alarcon RDCS
[2018-06-08 17:26] VITALS: RESP 18
[2018-06-08] MEDS: METOPROLOL TARTRATE 12.5 MG TAB PO SCH (20:48)
[2018-06-08] MEDS: METHADONE 10 MG TAB PO SCH (20:49)
--- NOTE | 2018-06-09 00:32 | PN ---
PROGRESS NOTE DATE OF SERVICE: 06/08/2018. REASON FOR FOLLOWUP: Left sternoclavicular joint osteomyelitis from MRSA. INTERVAL HISTORY: The patient is afebrile. He has been breathing comfortably. Chest pain to the left upper chest area. No shortness of breath. Occasional cough. No abdominal pain and no diarrhea. EXAMINATION: Blood pressure 146/80 with a pulse of 73, temperature 98, he is 98% on room air. GENERAL DESCRIPTION: A middle-aged male up in the room in no distress. RESPIRATORY SYSTEM: Unlabored breathing. Clear to auscultation anteriorly. HEART: S1, S2. Regular rate and rhythm. ABDOMEN: Soft. LABS: Hemoglobin 11.1, white count 14.1, BUN of 21, creatinine 0.6. Blood culture has been negative so far. DIAGNOSTIC IMPRESSION AND PLAN: Patient admitted to the hospital with left upper chest pain. The patient did have a history of sternoclavicular joint osteomyelitis from MRSA from IV drug use with evidence of persistent involvement of the left sternoclavicular line. The patient has been afebrile and blood culture has been negative so far. We will continue the patient on vancomycin at this point. We will try to obtain records from the [facility] to see for long the patient has been treated with for this osteomyelitis, as he himself is not a very good historian as far as the dates are concerned. Continue supportive care. MMLALITHAL / MOLINAN: [id number] /
[2018-06-09] MEDS: HEPARIN SODIUM,PORCINE 5,000 UNIT/ML 1 ML VIAL SQ SCH ×2 (03:14→08:56)
[2018-06-09] MEDS: MORPHINE SULFATE 2 MG/ML SYRINGE IVP PRN ×2 (03:15→10:39)
[2018-06-09] MEDS: SODIUM CHLORIDE 0.9% 1,000 ML IV SCH ×2 (04:53→11:39)
[2018-06-09] MEDS ORDERED: VANCOMYCIN TROUGH DUE 1 EACH MISC MISCELLANE ONE (07:00)
[2018-06-09 07:36] LABS: Anion Gap 5 mmol/L; Blood Urea Nitrogen 18 mg/dL (9-20); Calcium 8.7 mg/dL (8.4-10.2); Carbon Dioxide 24 mmol/L (22-30); Chloride 113 mmol/L (98-107); Glucose 107 mg/dL (74-99); Potassium 4.6 mmol/L (3.5-5.1); Sodium 142 mmol/L (137-145)
[2018-06-09] MEDS: METHADONE 10 MG TAB PO SCH (08:55)
[2018-06-09] MEDS: METHOCARBAMOL 750 MG TAB PO SCH (08:55)
[2018-06-09] MEDS: GABAPENTIN 100 MG CAP PO SCH (08:55)
[2018-06-09] MEDS: clonazePAM 1 MG TAB PO SCH (08:56)
[2018-06-09] MEDS: METOPROLOL TARTRATE 12.5 MG TAB PO SCH (08:56)
[2018-06-09] MEDS: FAMOTIDINE 20 MG TAB PO SCH (08:56)
[2018-06-09] MEDS: NICOTINE 21MG/24HR PATCH TRANSDERM SCH (08:56)
[2018-06-09] MEDS: VANCOMYCIN 1,750 MG in SODIUM CHLORIDE 0.9% 500 ML 500 ML IVPB SCH (09:03)
[2018-06-09 12:04] VITALS: BP 146/75; TEMP 98.2
[2018-06-09] MEDS: HYDROcodone/APAP 5-325MG 1 EACH TAB PO PRN (13:33)
--- NOTE | 2018-06-09 14:36 | PN ---
PROGRESS NOTE This patient was admitted with probably septicemia and lactic acidosis. Patient's blood cultures remain so far negative. Echocardiogram does not show any evidence of vegetations. Patient is currently getting IV vancomycin. Patient's heart rate is 64 per minute, blood pressure is 156/74 mmHg. First and second heart sounds are normal. Lungs are clinically clear to auscultation and percussion. We will recommend to continue the patient on the current medications. MMODL / IJN: [id number] /
--- NOTE | 2018-06-09 14:54 | P.PN ---
Subjective Progress Note Date: 06/09/18 Principal diagnosis: Fever, withdrawal Patient seen and examined. No acute events overnight. Patient complains of sharp stabbing chest pain in the middle of his chest, next to his sternal scar. Pain is stabbing in nature 10 out of 10 in severity. Patient is requesting morphine and methadone. His vitals have stabilized since admission. He is requesting to stay another day or 2. Objective - Vital Signs Vital signs: Vital Signs Temp 98.2 F 06/09/18 12:00 Pulse 154 H 06/09/18 12:00 Resp 18 06/09/18 12:00 BP 146/75 06/09/18 12:00 Pulse Ox 97 06/09/18 12:00 Intake & Output 06/08/18 06/09/18 06/09/18 18:59 06:59 18:59 Intake Total 570 2810 624 Balance 570 2810 624 Weight 101.9 kg Intake: Intake, IV Titration 1850 Amount Sodium Chloride 0.9% 1, 1350 000 ml @ 150 mls/hr IV . Q6H40M [facility] Rx#:[id number] Vancomycin 1,750 mg In 500 Sodium Chloride 0.9% 500 ml 500 ml @ 167 mls/hr IVPB Q8HR [facility] Rx#: [id number] Oral 570 960 624 Other: Voiding Method Toilet Toilet Toilet # Voids 4 3 - Exam General: [non toxic], [no distress], [appears at stated age] Derm: [warm], [dry] Head: [atraumatic], [normocephalic], [symmetric] Eyes: [EOMI], [no lid lag], [anicteric sclera] Mouth: [no lip lesion], [mucus membranes moist] Cardiovascular: [S1S2 reg], [sternal scar with tenderness to palpation], [ positive DP pulse bilateral] Lungs: [CTA bilateral], [no rhonchi, no rales] , [no accessory muscle use] Abdominal: [soft], [ nontender to palpation], [no guarding], [no appreciable organomegaly] Ext: [no gross muscle atrophy], [no edema], [no contractures] Neuro: [no focal neuro deficits] Psych: [Alert], [oriented], [appropriate affect] - Labs CBC & Chem 7: 06/08/18 05:46 06/09/18 06:59 Labs: Abnormal Lab Results - Last 24 Hours (Table) 06/09/18 Range/Units 06:59 Chloride 113 H (98-107) mmol/L Glucose 107 H (74-99) mg/dL Microbiology - Last 24 Hours (Table) 06/06/18 17:24 Blood Culture - Preliminary Blood No Growth after 48 hours Assessment and Plan Assessment: Assessment and Plan 1. Sepsis: Source of infection from IVDU (previous admission for chest wound ( due to IVDU), transferred to OSH, underwent 3 Sx procedures and received 5/6 weeks of IV Abx). HR consistently > 90, Leukocytosis of 19 with neutrophilia on admission. Lactic acid of 3.2 to 3.3 to 1.9. CXR is negative for acute process. CT chest shows sternal clavicular joint erosion with inflammatory type changes , osteomyelitis. BCx prelim negative after 48H. Continue Vancomycin IV and DC Cefepime IV. Echocardiogram shows EF 55-60% without vegetations. Continue NS at 150 cc/h. FU BCx, ID consult 2. Chest pain: Pressure like, likely due to demand ischemia, ACS ruled out. Troponin 0.097, 0.230, 0.159, 0.141 with EKG showing sinus tachycardia. CXR is negative for acute process. Pain management with Alta and Morphine IV PRN. Continue ASA 81 mg PO QD, Metoprolol 12.5 mg PO BID. Telemetry monitoring. Echocardiogram shows no regional wall motion abnormalities. 3. Polysubstance use: Change Methadone from 15 mg PO QD to 10 mg PO BID. Start Klonopin 1 mg PO TID. Start Robaxin 750 mg PO TID and Gabapentin 100 mg PO TID. Continue Habitrol 21 mg TRANSDERM QD. CPK within normal limits. 4. Hepatitis C: Previously diagnosed. AST 117. Needs close FU in the outPT setting. AFP within normal limits. 5. DVT/GI Prophylaxis: Heparin 5000 units SUBCUT TID, Pepcid 20 mg PO BID. Resolved: Lactic acidosis, Tachycardia, HyperCl metabolic acidosis Tachycardia and Lactic acidosis resolved. Withdrawal symptoms mostly controlled. Sepsis rule out - BCx prelim negative, CT chest showing OM of the sternum. Discussed with Dr. Ham, patient is high risk for PICC line and IV antibiotics. [facility] also to go to [facility]. Recommending DC'd on Zyvox 600 mg PO BID for 4 weeks. Will DC today.
[2018-06-09 15:21] VITALS: PULSE 67
--- NOTE | 2018-06-09 16:42 | PN ---
PROGRESS NOTE DATE OF SERVICE: 06/09/2018. REASON FOR FOLLOWUP: Left joint osteomyelitis. INTERVAL HISTORY: The patient is afebrile. He is still complaining of pain into the left upper chest area. The pain is more dull aching pain 3 to 4 out of 10 and no radiation. The patient denies having any cough or sputum production. No abdominal pain. No nausea, vomiting. No diarrhea. EXAMINATION: Blood pressure 146/75 with a pulse of 67, temperature 98.2. He is 97% on room air. General description is a middle aged male up in the room in no distress. Respiratory system: Unlabored breathing. Clear to auscultation anteriorly. Heart S1, S2. Regular rate and rhythm. ABDOMEN: Soft, no tenderness. EXTREMITIES: No edema of the feet. LABS: BUN of 18, creatinine 0.82. Vancomycin trough 22.1. Blood culture has been negative so far. CT of the chest was reviewed with Dr. Greenwood and did show dystrophic changes at the left sternoclavicular joint with some minimal inflammatory changes but no abscess formation. DIAGNOSTIC IMPRESSION AND PLAN: Patient with left abscess from IV drug use in a patient who did have a positive culture both on the blood and at that site with MRSA. The patient apparently has been treated with 6 weeks of IV vancomycin. However, the patient is telling me that he still has about 20 bags of vancomycin left when the PICC line was removed by the home care nurses, it is very not clear if the patient was compliant with his Q 8 hour dose of vancomycin at home and more likely has failed the outpatient IV vancomycin therapy with persistent inflammatory changes at the left sternoclavicular joint on the CT and did have elevated CRP and mild elevated Sed rate. I did discuss the care in detail with the admitting physician who was telling the patient more likely going to shelter because of probation violation and it is going to be hard to place the PICC line and IV antibiotic therapy in the shelter setting from previous experience. He may be transitioned to oral Zyvox 7 mg twice a day, however, would have preferred a PICC line and daptomycin at 8 mg/kg for at least 4-6 weeks with close outpatient followup. All these options were discussed in detail with the admitting physician who is working on the discharge. However, overall poor prognosis in view of the patient continued IV drug use. Continue with supportive care. MMLALITHAL / MOLINAN: [id number] /
[2018-06-09] MEDS ORDERED: VANCOMYCIN 1,500 MG in SODIUM CHLORIDE 0.9% 500 ML 500 ML IVPB SCH (18:00)
[2018-06-09] MEDS ORDERED: VANCOMYCIN 1,500 MG in SODIUM CHLORIDE 0.9% 250 ML IVPB SCH (18:00)
--- NOTE | 2018-06-10 09:09 | PN ---
PROGRESS NOTE DATE OF SERVICE: 06/08/2018. HISTORY: This patient was admitted with persistent chest discomfort and sinus tachycardia with evidence of lactic acidosis. The patient has recently recovered from Staphylococcus bacteremia. Patient is doing well. The patient's echocardiogram with normal left ventricular systolic functions. The patient denies any chest pain or shortness of breath. PHYSICAL EXAM: The patient remains afebrile. First and second heart sounds are normal lungs are clear to auscultation and percussion. ASSESSMENT AND PLAN: CT scan is suggestive of osteomyelitis of the circumflex. ID consultation is obtained. The patient's mild rise in the all the troponin is probably secondary to sinus tachycardia and lactic acidosis. Echocardiogram does not show any wall motion abnormality. Continue the current treatment. MMODL / IJN: [id number] /
== END 2018-06-09 17:19 | disposition home or self-care (01) | DRG 871 ==
LOC: EC 16:56 → 3SCARD 19:45
PROVIDERS: ADMIT Internal Medicine; ATTEND Internal Medicine
DX: A41.9 Sepsis, unspecified organism (principal); N17.0 Acute kidney failure with tubular necrosis; F11.23 Opioid dependence with withdrawal; E87.2 Acidosis; I24.8 Other forms of acute ischemic heart disease; M86.8X8 Other osteomyelitis, other site; B19.20 Unspecified viral hepatitis C without hepatic coma; Z86.14 Personal history of Methicillin resistant Staphylococcus aureus infection; F15.10 Other stimulant abuse, uncomplicated; Z71.6 Tobacco abuse counseling; F17.210 Nicotine dependence, cigarettes, uncomplicated; F41.9 Anxiety disorder, unspecified; F31.9 Bipolar disorder, unspecified; G89.29 Other chronic pain; M54.5 Low back pain; L60.0 Ingrowing nail; Z79.82 Long term (current) use of aspirin; Z79.899 Other long term (current) drug therapy; Z83.3 Family history of diabetes mellitus; Z65.3 Problems related to other legal circumstances; E86.0 Dehydration; Z90.89 Acquired absence of other organs; Z88.0 Allergy status to penicillin
CPT/HCPCS: 36415; 71046; 71260; 80048; 80053; 80202; 81001; 82105; 82550; 82553; 83605; 84484; 85025; 85610; 85652; 85730; 86140; 87040; 87086; 93005; 93306; 96361; 96365; 96367; 99285